=== PATIENT | female | born 1935 | race Caucasian/White ===

== ENCOUNTER 2018-09-19 05:27 | Inpatient (IN) | payer MEDICARE, OTHER, SELFPAY ==
[2018-09-19] VITALS (17 sets, daily range): BP systolic 81–117; BP diastolic 42–74; PULSE 78–109; RESP 16–25; TEMP 36.6–36.9; O2SAT 94–100; BMI 26.4; BMI 24.5; BMI 24.6
--- NOTE | 2018-09-19 05:42 | RAD_ITS ---
HISTORY: C/O CP AND SOB SINCE THURSDAY RECENTLY DISCHARGED FROM OTHER HOSPITAL FOR SAME ADDITIONAL HISTORY: None provided. COMPARISON: 01/13/2014 TECHNIQUE: Frontal chest radiograph. Number of images including paperwork: 1 FINDINGS: LUNGS AND PLEURA: Right mid to lower lung and retrocardiac opacities. Blunting of the costophrenic angles. CARDIAC SILHOUETTE: Stable. MEDIASTINUM AND JUAN: Aortic calcification. UPPER ABDOMEN: Unremarkable. SKELETON AND SOFT TISSUES: No acute findings. Degenerative changes. OTHER DEVICES AND HARDWARE: Lower thoracic spine hardware. RAD/Chest 1 View (Portable) IMPRESSION: 1. Bibasilar opacities, nonspecific but concerning for pneumonia. 2. Small bilateral pleural effusions. at 0644 Reported and signed by: Maricel Francis MD Electronically Signed: Maricel Francis MD at 6:44 EDT Tel , Service support ,
--- NOTE | 2018-09-19 05:42 | EKG12_ITS ---
Test Reason : CP Blood Pressure : / mmHG Vent. Rate : 109 BPM Atrial Rate : 109 BPM P-R Int : 172 ms QRS Dur : 096 ms QT Int : 350 ms P-R-T Axes : 071 -24 114 degrees QTc Int : 471 ms Sinus tachycardia Left ventricular hypertrophy with repolarization abnormality Cannot rule out Septal infarct , age undetermined Inferior infarct , age undetermined Abnormal ECG Confirmed by AMERICA HIRSCH, YOUNG ([id number]), mapping editor REBECA CORRAL ([id number]) on 09/21/2018 1:45:58 PM Referred By: BB Confirmed By:YOUNG CROSS MD
--- NOTE | 2018-09-19 05:42 | ED.VIS.CHEST ---
History of Present Illness Chief Complaint: Chest Pain Informant: Patient, EMS Quality: Pain Location: Right Chest - w/ radiation into right upper back, right shoulder and arm Current Severity: Gone Maximum Severity: Moderate Worsened By: Nothing Relieved By: - - unknown, but received ASA 324mg from EMS Associated Symptoms: Nausea. Negative for: Vomiting, Diaphoresis, Cough, Lightheadedness, Palpitations Narrative: Patient is a terrible historian. For instance, she has a paraplegic, and when asked how that occurred, she states I fell. When asked if she had a spine injury, she states that she does not know. She presents by EMS for chest pain. She states that she was admitted to [facility] in [place] for this and discharged 2 days ago. When asked how long the pain has been going on for, she will not give me a straight answer because she does not remember and states that it has been off and on, and keeps her up at night now. She states that her son would not let her go back to [place] so she came here. At this time she has no symptoms and they resolved. She has a colostomy and she does not know why she needed it. She states she has no medical problems, but is on insulin injections for diabetes and several other medications, which she cannot tell me. She does not know when her last stress test was but states they did not do one within the last couple days. She states that she was told she had a slight heart attack. She states they did blood work and x-rays and no major procedures. She says she may have been diagnosed with pneumonia while she was there and has no idea if she was sent home on antibiotics or not. - Past Medical History (1) Hypertension Status: Chronic (2) DM2 (diabetes mellitus, type 2) Status: Chronic Past Medical History - Allergies and Home Meds Allergies/Adverse Reactions: Allergies No Known Allergies Allergy (Verified 01/12/14 18:03) Primary Care Physician: Charity Clarke DO [STAFF PHYSICIAN] - Surgical History: - - Colostomy Lives: With Family Smoking Status: Former smoker - Family History Maternal Family History: Reports: No pertinent history Paternal Family History: Reports: No pertinent history Sibling Family History: Reports: No pertinent history Review of Systems ROS: Unable to Obtain - very limited due to pt not giving straight answers to direct yes/no questions General: Denies: Chills, Fever Eyes: Denies: Visual changes - bilaterally, Diplopia Cardiovascular: Reports: Chest pain. Denies: Palpitations, Heart racing Respiratory: Denies: Dyspnea - I don't think so but I don't know, Cough Gastrointestinal: Reports: Nausea. Denies: Abdominal pain, Vomiting, Diarrhea Musculoskeletal: Denies: Neck pain, Back pain Skin: Denies: Rash, Wounds Neurological: Reports: Weakness - BLE, chronic, Numbness - BLE, chronic. Denies: Headache Physical Exam Vital Signs/Narrative: Vital Signs Temp Pulse Resp BP Pulse Ox 09/19/18 05:29 97.9 F 109 H 25 H 107/62 98 Inital Vital Signs reviewed: Yes General: Well nourished, Well developed, No Acute Distress Head: Normocephalic, Atraumatic Eyes: Perrl, EOMI ENT: Moist mucous membranes, No rhinorrhea Neck: Supple, Nontender Cardiovascular: Regular rate, Regular rhythm, Murmur - harsh systolic cresc/decresc Respiratory: No distress, CTA bilaterally, Chest nontender Abdomen: Soft, Nontender, Nondistended, Normal bowel sounds Back: Nontender, Normal Inspection Extremities: Nontender, No edema. Negative for: Calf Tenderness Skin: Normal color, No rash, No Trauma Neurological: Alert, Oriented x3, Cranial nerves II-XII grossly intact, Parasthesia - BLE numb, Weakness - BLE paralysis Psychological: Normal affect, Normal Mood Diagnostic/Tx/Re-eval Impressions Chest X-Ray 09/19/18 05:42 IMPRESSION: 1. Bibasilar opacities, nonspecific but concerning for pneumonia. 2. Small bilateral pleural effusions. at 0644 Reported and signed by: Maricel Francis MD Electronically Signed: Maricel Francis MD at 6:44 EDT Tel , Service support , 09/19/18 05:42 Chest 1 View (Portable) [RAD] Stat Laboratory Results 07/21/19 07/21/19 07/21/19 06:22 06:22 06:30 WBC 9.0 RBC 3.05 L Hgb 7.9 L Hct 25.2 L MCV 82.6 MCH 25.9 L MCHC 31.3 L RDW Std Deviation 48.9 H RDW Coeff of Carly 16.2 H Plt Count 290 MPV 9.2 Immature Gran % (Auto) 0.200 Neut % (Auto) 72.1 H Lymph % (Auto) 17.1 L Holt % (Auto) 7.9 Eos % (Auto) 2.0 Baso % (Auto) 0.7 Absolute Neuts (auto) 6.5 Absolute Lymphs (auto) 1.54 Absolute Nucleated RBC 0.00 Nucleated RBC % 0 PT 13.4 INR 1.0 APTT 24.2 Sodium 140 Potassium 4.2 Chloride 111 H Carbon Dioxide 19.0 L Anion Gap 10 BUN 37 H Creatinine 1.35 H Estim Creat Clear Calc 30.60 Est GFR (MDRD) Af Amer 48 L Est GFR (MDRD) Non-Af 40 L BUN/Creatinine Ratio 27.4 H Glucose 149 H Calcium 9.4 Troponin I 2.100 H* - Rhythm Strip Rhythm Strip: Sinus Tach Rate: 109 Ectopy: None - EKG Initial EKG Interpretation: No Acute Injury Pattern, Sinus Tachycardia, S-T Depression - laterally, 1-2mm. LVH w/ strain. 1mm discordant BRYON V1-2 only, w/ associated Q waves., - - narrow QRS, no apparent block. Prior: No Prior - Medical Decision Making EKG shows ST depressions laterally, is consistent with LVH, and likely strain. There are anterior Q waves along with slight ST elevations, indicating likely recent AK, or ventricular aneurysm. However, this is not a STEMI. She is chest pain-free, and remained so throughout her ED stay. She states that she has not been coughing, yet appears to have pneumonia in the right lower lobe. Her initial heart rate was 109, but subsequently before any treatment, it was 86. However, according to governmental regulations, she still meets criteria for sepsis because of this although clinically I do not think she appears extremely ill. She is a very difficult stick. Blood cultures and lactate are ordered, however there is delay in getting these and giving antibiotics because we have had a very difficult time in obtaining these samples. We are waiting for the lab to do so. Aspirin was already given, we are also administering Lovenox. On reevaluation she still has no chest discomfort and states that she feels okay. Discussed with hospitalist for PCU admission. ED Disposition - Plan for ED Patient: Disposition: [facility] Diagnosis: Intermittent chest pain, NSTEMI (non-ST elevated myocardial infarction), Sepsis due to pneumonia Referrals: Charity Clarke DO [STAFF PHYSICIAN] -
--- NOTE | 2018-09-19 05:47 | ED.RN ---
DR. FLANNERY SAID PATIENT SHOULD NOT BE A SEPSIS ALERT.
[2018-09-19 06:31] LABS: Absolute Lymphocyte Count 1.54 X10^3/uL (0.83-4.51); Absolute Neutrophil Count 6.5 X10^3/uL (2.0-7.7); Basophil# 0.06 X10^3/uL; Basophil% 0.7 % (0-1); Eosinophil# 0.18 X10^3/uL; Hematocrit 25.2 % (37-47); Hemoglobin 7.9 g/dL (12.0-15.0); Lymphocyte # 1.54 X10^3/ul (4.0); Lymphocyte % 17.1 % (19-41); Mean Corp Hgb Conc 31.3 g/dL (32-36); Mean Corpuscular Hgb 25.9 pg (27.0-32.0); Mean Corpuscular Volume 82.6 fL (81-99); Mean Platelet Vol. 9.2 fl (6.2-12.0); Monocyte# 0.71 X10^3/uL; Monocyte% 7.9 % (0-10); NRBC Flagged by Analyzer 0 % (0-5); Neutrophil # 6.48 X10^3/uL (2.7-7.7); Neutrophil % 72.1 % (47-70); Platelet Count 290 K/mm3 (150-450); RBC Distribution Width CV 16.2 % (11.6-14.6); RBC Distribution Width SD 48.9 fl (35.1-43.9); Red Blood Count 3.05 M/mm3 (4.2-5.4)
[2018-09-19] MEDS: 0.9% Normal Saline 1,000 ML 150 ML IV (06:31)
[2018-09-19] MEDS: Ondansetron 4 MG/2 ML Vial IV ×2 (06:31→17:14)
[2018-09-19 06:55] LABS: Anion Gap 10 (5-15); BUN 37 mg/dL (7-18); BUN/Creat Ratio 27.4 RATIO (10-20); Calcium,Total 9.4 mg/dL (8.5-10.1); Chloride 111 mmol/L (98-107); Creatinine, Serum 1.35 mg/dL (0.55-1.02); EST Glomerular Filtration Rate 40 mL/min (>60); Est Glom Filt Rate - Afr Amer 48 mL/min (>60); Glucose 149 mg/dL (74-106); Potassium 4.2 mmol/L (3.5-5.1); Sodium Level 140 mmol/L (136-145)
[2018-09-19 06:59] LABS: Partial Thromboplast Time 24.2 Seconds (24.1-36.2); Prothrombin Time (Protime)PT. 13.4 SECONDS (11.7-14.9)
--- NOTE | 2018-09-19 07:18 | HP.PCM_ITS ---
Problem List (1) Sepsis due to pneumonia Status: Acute (2) Pneumonia Status: Acute Qualifiers: Pneumonia type: due to unspecified organism Laterality: bilateral Lung location: lower lobe of lung Qualified Code(s): J18.1 - Lobar pneumonia, unspecified organism (3) NSTEMI (non-ST elevated myocardial infarction) Status: Acute (4) Anemia Status: Acute Qualifiers: Anemia type: unspecified type Qualified Code(s): D64.9 - Anemia, unspecifi ed (5) Hypertension Status: Chronic Qualifiers: Hypertension type: essential hypertension Qualified Code(s): I10 - Essential (primary) hypertension (6) DM2 (diabetes mellitus, type 2) Status: Chronic Qualifiers: Diabetes mellitus salvage determiner insulin use: without fpc use Diabetes mellitus complication status: with other specified complication Qualified Code(s): E11.69 - Type 2 diabetes mellitus with other specified complication History of Present Illness Date of Admission: 09/19/18 Chief Complaint: Chest pain, cough, dyspnea The patient is a 83 y/o F w/ PMHx: Prior Trauma w/ Paraplegia, HTN, CKD stage III, Unclear Intra-abdominal intervention w/ resulting colostomy, Diabetes mellitus type II although poor historian, living at home from report who presents to the [facility] ED on 09/19/18 with history of recent discharge potentially versus ED evaluation at [facility] ~ 2 days prior with ongoing ~ 1 week history of progressively worsening dyspnea, mildly productive cough with concurrent right sided severe, 5/10, intermittent chest pain which she admits radiates into her back and RUE with no specific nausea, emesis, diaphoresis associated but admitted concurrent dyspnea. She notes that at [place] she was told she had pneumonia and potentially a heart attack but difficult to ascertain specifics as poor historian. Upon ED evaluation she noted resolution of her prior chest pain complaint. In the ED work-up included T 97.9, heart rate 109, BP 107/62, respiratory rate 25, 98% on 4 L nasal cannula, CBC with WBC 9, hemoglobin 7.9, platelet 290 with mild left shift, unremarkable coags, BMP with chloride 111, carbon dioxide 19, BUN/creatinine 37/1.35, glucose 149, trop 2.10, EKG with sinus tachycardia with no acute evidence of ischemia with nonspecific changes and a lactic acid 1.2, blood culture x2 pending, chest x-ray with bibasilar opacities and small bilateral pleural effusions. In the ED patient ministered normal saline, Zofran, Levaquin as well as therapeutic Lovenox x1 following discussion with ED physician given an STEMI presentation. Past Medical History Past Medical History (Chronic Problems): Chronic Problems Hypertension (Chronic) DM2 (diabetes mellitus, type 2) (Chronic) Allergies No Known Allergies Allergy (Verified 01/12/14 18:03) Home Medications: Ambulatory Orders Medication Instructions Recorded Insulin Lispro [Humalog] unit SQ TIDCM 01/13/14 Lisinopril [Zestril] 20 mg PO DAILY 01/13/14 Metoprolol(XL)Succ [Toprol Xl 50 mg PO DAILY 01/13/14 (Beta [place])] Multivitamin 1 tab PO DAILY 09/19/18 Novalog 20 units SQ QHS 09/19/18 Surgical History: - - Colostomy for unclear reason. 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 Paternal History Items: - - Patient is demented and cannot give clear past maternal medical history. Sibling History Items: No pertinent history Review of Systems Constitutional: Reports: Malaise, Weakness, Fatigue. Denies: Chills, Fever, Weight Change HEENT: Denies: Head Aches, Sinus Congestion, Sinus Drainage Cardiovascular: Reports: Chest Pain. Denies: Light Headedness, Orthopnea, Palpitations, Syncope Respiratory: Reports: Cough, Shortness of Breath, Shortness of breath upon exertion. Denies: Shortness of breath at rest, Sputum production Gastrointestinal: Denies: Abdominal Pain, Nausea, Vomiting Genitourinary: Denies: Dysuria Musculoskeletal: Reports: Back Pain, Joint Pain. Denies: Joint Tenderness Skin: Denies: Rash, Wounds Neurological: Reports: Focal weakness. Denies: Numbness, Tingling Psychiatric: Denies: Anxiety, Depression, Homicidal Ideations, Suicidal Ideations Hematologic/ Lymphatic: Reports: Anemia. Denies: Easy Bruising, Easy Bleeding VTE Information - Inpt Only VTE Present on Admission: No VTE Mechan Device Prophylaxis: SCD's VTE Pharm Prophylaxis ordered?: Yes Patient Problems: Active and Suspected Problems Intermittent chest pain (Acute) NSTEMI (non-ST elevated myocardial infarction) (Acute) Sepsis due to pneumonia (Acute) Anemia (Acute) Subjective: Seated upright in the bed, fatigued and mildly irritable. Objective: Physical Examination: General: awake, alert, oriented to self and that she is in the hospital but extremely poor historian, confused and suspect underlying notable dementia, remains intermittently cooperative, seated upright in bed in no apparent distress. Skin: normal color, turgor, no icterus, cyanosis except very staged ecchymoses extremities. HEENT: AT/NC, EOMI, PERRLA, moderately dry MM, no carotid bruits or JVD noted. Lungs: Diminished breath sounds bilateral bases, moderate effort, mildly rh onchorous at bases, no wheezing or rales. Heart: Improved, regular rate and rhythm; no gallop, rub audible. Abdomen: soft, obese, ostomy present, NTTP, ND, normal BS, no HSM. Extremities: no cyanosis, clubbing, or edema, s/p trauma with paraplegia, unclear specifics. Neurological: patient awake, alert, oriented x 3; cognitive function intact; pupils equally reactive to light and accomodation; cranial nerves II-XII grossly normal, moving BL UE, history of unclear trauma with history of paraplegia, strength accordingly moderately to severely globally decreased. Psychiatric: affect appears irritable, no acute evidence of depressive or anxiety feelings. - Physical Exam Vital Signs Temp Pulse Resp BP Pulse Ox 97.9 F 96 20 H 115/74 99 09/19/18 05:29 09/19/18 06:37 09/19/18 06:37 09/19/18 06:37 09/19/18 06:37 Oxygen Flow Rate (L/min) 4 Oxygen Delivery Method Room Air Weight: 163 lb 9.328 oz Body Mass Index (BMI) 26.4 Laboratory Tests Past 24 Hrs 09/19/18 09/19/18 09/19/18 06:22 06:22 06:30 WBC 9.0 RBC 3.05 L Hgb 7.9 L Hct 25.2 L MCV 82.6 MCH 25.9 L MCHC 31.3 L RDW Std Deviation 48.9 H RDW Coeff of Carly 16.2 H Plt Count 290 MPV 9.2 Immature Gran % (Auto) 0.200 Neut % (Auto) 72.1 H Lymph % (Auto) 17.1 L [place] % (Auto) 7.9 Eos % (Auto) 2.0 Baso % (Auto) 0.7 Absolute Neuts (auto) 6.5 Absolute Lymphs (auto) 1.54 Absolute Nucleated RBC 0.00 Nucleated RBC % 0 PT 13.4 INR 1.0 APTT 24.2 Sodium 140 Potassium 4.2 Chloride 111 H Carbon Dioxide 19.0 L Anion Gap 10 BUN 37 H Creatinine 1.35 H Estim Creat Clear Calc 30.60 Est GFR (MDRD) Af Amer 48 L Est GFR (MDRD) Non-Af 40 L BUN/Creatinine Ratio 27.4 H Glucose 149 H Calcium 9.4 Troponin I 2.100 H* Assessment/Plan All Active Problems Intermittent chest pain (Acute) NSTEMI (non-ST elevated myocardial infarction) (Acute) Sepsis due to pneumonia (Acute) Anemia (Acute) Pneumonia (Acute) The patient is a 83 y/o F w/ PMHx: Prior Trauma w/ Paraplegia, HTN, CKD stage III, Unclear Intra-abdominal intervention w/ resulting colostomy, Diabetes mellitus type II although poor historian, living at home from report who present s to the [facility] ED on 09/19/18 with history of recent discharge potentially versus ED evaluation at [facility] ~ 2 days prior with ongoing ~ 1 week history of progressively worsening dyspnea, mildly productive cough with concurrent right sided severe, 5/10, intermittent chest pain which she admits radiates into her back and RUE with no specific nausea, emesis, diaphoresis associated but admitted concurrent dyspnea. (1) Acute Sepsis secondary to Community Acquired Pneumonia with associated Hypoxia: ED work-up included T 97.9, heart rate 109, BP 107/62, respiratory rate 25, 98% on 4 L nasal cannula, CBC with WBC 9, hemoglobin 7.9, platelet 290 with mild left shift, unremarkable coags, BMP with chloride 111, carbon dioxide 19, BUN/creatinine 37/1.35, glucose 149, trop 2.10, EKG with sinus tachycardia with no acute evidence of ischemia with nonspecific changes and a lactic acid 1.2, blood culture x2 pending, chest x-ray with bibasilar opacities and small bilateral pleural effusions. Will admit to PCU, maintain on oxygen with wean as tolerated to room air, continue ATC duonebs, PRN albuterol, maintained on IV Rocephin and Azithromycin, HOB, IS parameters w/ pending sputum cultures and urine antigens. Bld cx x 2 obtained in the ED. PT, OT, CM consultation for discharge planning. Records requested from recent possible [facility] evaluation. (2) Chest Pain w/ Acute NSTEMI: EKG in ED w/ sinus tachycardia with no acute evidence of ischemia, nonspecific changes, CXR w/ infiltrates as noted #1 evidence of bilateral bibasilar pneumonia. Trop elevated, 2.10. Will maintain on a monitored bed, continue serial cardiac enzymes and EKGs. Obtain magnesium level upon admission. Continue renally dose therapeutic Lovenox. Continue medical management w/ asa, continue BB and ACEI but will reduce dosing given low normal BP upon presentation add moderate dose statin w/ AM FLP. Cardiology consulted, would necessitate future cardiac catheterization once acute #1 resolves. ASA, NG, morphine. (3) Acute on Chronic Normocytic Anemia: Admission Hgb 7.9, prior 9.3, given #2 and possible need for intervention will obtain stool guaiac, iron panel, ferritin, vitamin B12 and folic acid and further treat as needed. (4) Diabetes mellitus type II: We will hold patient current regimen pending hemoglobin A1c, and interim allow ADA diet and continue Accu-Cheks with low insulin sliding scale. Nutrition consultation for education and teaching. (5) Hypertension: Continue home regimen including metoprolol and lisinopril however will reduce dosing given presentation with low normal blood pressures, PRN hydralazine. (6) Chronic Kidney Disease Stage III: Admission BUN/Cr 37/1.35, baseline renal function 1.1-1.2, similar to prior, repeat BMP in AM. (7) Intra-abdominal Event, Unclear, s/p Colostomy: Records from [place] requested as noted, unclear reason for ostomy, Wound/applied psychology professor consultation. (8) History of Trauma, Unclear w/ Paraplegia: Fall, aspiration precautions, PT, OT, CM consultations, frequent positioning, barrier care. (9) DVT Prophylaxis: SCDs, therapeutic renally dosed lovenox given #2 pending enzyme trending. Code Visit Inpatient E&M: 95884 Init Hosp L3
[2018-09-19] MEDS: levoFLOXacin IV 750 MG/150 ML BAG 100 MG IV (07:46)
[2018-09-19] MEDS: Enoxaparin 80 MG/0.8 ML Syringe 75 MG SC (07:46)
--- NOTE | 2018-09-19 08:22 | ECHOD_ITS ---
Reason For Study: S/P AL Procedure This was a 2D Doppler, Color Flow transthoracic echocardiogram. Exam performed in supine position due to blood transfusion and right shoulder pain. Exam performed portable in patient room. Dr. Morris was notified of echo preliminary report at 9:20 am. Left Ventricle Normal LV size. Severe concentric left ventricular hypertrophy. The estimated ejection fraction is 45 %. Moderate segmental systolic dysfunction (see wall motion). There are regional wall motion abnormalities as specified. [place] : Hypokinetic. Mid-Anterior : Hypokinetic. Right Ventricle Normal RV size. Normal systolic function. Atria The left atrium is severely enlarged. Normal right atrium. Mitral Valve There is moderate mitral annular calcification. Tricuspid Valve Normal tricuspid valve. Aortic Valve Trisinus/trileaflet aortic valve. Severe focal aortic valve calcification. Peak aortic valve gradient 111 mmHg. Mean aortic valve gradient 69 mmHg. Calculated aortic valve area (continuity equation) is 0.6 cm2. Critical aortic stenosis. Pulmonic Valve Normal pulmonic valve. Great Vessels Calcified aortic root. The pulmonary artery is normal size. Normal inferior vena cava. Pericardium/Pleural No pericardial effusion. MMode/2D Measurements & Calculations LVIDd: 4.1 cm IVSd: 1.7 cm LVOT diam: 2.0 cm LVIDs: 3.4 cm LVPWd: 1.6 cm LVOT area: 3.3 cm2 RVDd: 3.2 cm FS: 16.3 % Ao root diam: 3.2 cm LAV(MOD-bp): 137.1 ml Aortic Valve Planimetry: 0.56 cm2 LAV(MOD-bp) Indexed: 74.8 ml/m2 LAV(MOD-sp2): 137.4 ml LAV(MOD-sp4): 142.5 ml LA dimension(2D): 4.8 cm LA A4 area: 32.9 cm2 RA A4 area: 19.1 cm2 Doppler Measurements & Calculations MV E max aila: 142.2 cm/sec Ao V2 max: 528.4 cm/sec LV V1 max: 89.8 cm/sec Ao max P.7 mmHg LV V1 max P.2 mmHg Ao V2 mean: 399.1 cm/sec LV V1 mean P.7 mmHg Ao mean P.8 mmHg LV V1 mean: 61.4 cm/sec Ao V2 VTI: 111.8 cm LV V1 VTI: 18.9 cm ZACH(I,D): 0.56 cm2 ZACH(V,D): 0.56 cm2 SV(LVOT): 62.2 ml PA V2 max: 93.0 cm/sec TR max alia: 399.4 cm/sec TR max P.9 mmHg Interpretation Summary Normal LV size. Severe concentric left ventricular hypertrophy. The estimated ejection fraction is 45 %. Moderate segmental systolic dysfunction (see wall motion). [place] : Hypokinetic. Mid-Anterior : Hypokinetic The left atrium is severely enlarged. Severe focal aortic valve calcification. Peak aortic valve gradient 111 mmHg. Mean aortic valve gradient 69 mmHg. Calculated aortic valve area (continuity equation) is 0.6 cm2. Critical aortic stenosis. Ordering Physician: White^Mame^L^^ Referring Physician: NO PCP Performed By: Riana Davies RDCS, RVT
--- NOTE | 2018-09-19 08:22 | EKG12_ITS ---
Test Reason : CP ADMISSION Blood Pressure : / mmHG Vent. Rate : 097 BPM Atrial Rate : 097 BPM P-R Int : 184 ms QRS Dur : 090 ms QT Int : 354 ms P-R-T Axes : 000 -29 117 degrees QTc Int : 449 ms Normal sinus rhythm Left ventricular hypertrophy with repolarization abnormality Cannot rule out Septal infarct , age undetermined Inferior infarct , age undetermined Abnormal ECG When compared with ECG of 19-SEP-2018 05:30, MANUAL COMPARISON REQUIRED, DATA IS UNCONFIRMED Confirmed by AMERICA HIRSCH, YOUNG ([id number]), story editor REBECA CORRAL ([id number]) on 09/21/2018 1:58:01 PM Referred By: GERARD Confirmed By:YOUNG CROSS MD
[2018-09-19 08:23] LABS: Lactic Acid 1.2 mmol/L (0.4-2.0)
[2018-09-19 09:03] LABS: Hemoglobin A1c 6.3 % (4.2-6.3)
[2018-09-19 09:09] LABS: Ferritin 45 ng/mL (8-252); Iron 26 ug/dL (50-170); Iron Binding Capacity,Total 233 ug/dL (250-450); PERCENT IRON SATURATION 11.2 % (15.0-55.0)
[2018-09-19] MEDS: Metoprolol(XL)Succ 25 MG Tablet 12.5 MG PO (09:57)
[2018-09-19] MEDS: Lisinopril 5 MG Tablet PO (09:58)
[2018-09-19] MEDS: Aspirin E.C. 81 MG Tablet PO (09:58)
[2018-09-19] MEDS: Ceftriaxone 1 GM/50 ML BAG IV (09:58)
--- NOTE | 2018-09-19 11:12 | CON.PCM_ITS ---
Problem List (1) NSTEMI (non-ST elevated myocardial infarction) Status: Acute Reason for Consult Date of Consultation: 09/19/18 History of Present Illness: The patient is a 83 year old F with multiple medical problems. He has history of paraplegia with past trauma. She presented to the hospital yesterday with complaints of anterior chest discomfort. According to her, she had been feeling anterior chest heaviness. No radiation to the arm neck or jaw. No associated shortness of breath. Per her, she has had similar episode about a week ago. Denies any knowledge of any exacerbating or relieving factors. Work-up in the hospital revealed elevated troponins, ruling her in for non-ST elevation myocardial infarction. Patient denies any past history of coronary artery disease. Denies any previous history of angina pectoris. No history of shortness of breath. Per the chart, patient has history of normocytic anemia from before. However her hemoglobin here was noted to be low. Prior hemoglobin 9.3. Current admission 7.9. Past Medical History Allergies/Adverse Reactions: Allergies No Known Allergies Allergy (Verified 01/12/14 18:03) Home Medications: Ambulatory Orders Medication Instructions Recorded Insulin Lispro [Humalog] unit SQ TIDCM 01/13/14 Lisinopril [Zestril] 20 mg PO DAILY 01/13/14 Metoprolol(XL)Succ [Toprol Xl 50 mg PO DAILY 01/13/14 (Beta [place])] Multivitamin 1 tab PO DAILY 09/19/18 Novalog 20 units SQ QHS 09/19/18 Past Medical History (Chronic Problems): Chronic Problems Hypertension (Chronic) DM2 (diabetes mellitus, type 2) (Chronic) Surgical History: - - Colostomy for unclear reason. 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 Paternal History Items: - - Patient is demented and cannot give clear past maternal medical history. Sibling History Items: No pertinent history Lives: With Family Smoking Status: Former smoker Tobacco Use: Non-smoker Alcohol: None Drugs: None Review of Systems - Review of Systems General: Denies: Fever, Chills Cardiovascular: Reports: Chest Discomfort at Rest. Denies: Shortness of Breath, Orthopnea, PND, Peripheral Edema Gastrointestinal: Denies: Abdominal Discomfort, Nausea, Emesis, Hematemesis, Melena Neurological: Reports: - - Question of history of paraplegia secondary to trauma Hematologic/ Lymphatic: Denies: Easy Brusing, Easy Bleeding Objective: Vital Signs Temp Pulse Resp BP Pulse Ox 98.4 F 101 H 20 H 117/68 94 09/19/18 08:20 09/19/18 09:57 09/19/18 08:20 09/19/18 08:20 09/19/18 08:20 Oxygen Flow Rate (L/min) 4 Oxygen Delivery Method Room Air Weight: 69.3 kg Body Mass Index (BMI) 24.5 09/19/18 06:22: WBC 9.0, RBC 3.05 L, Hgb 7.9 L, Hct 25.2 L, MCV 82.6, MCH 25.9 L , MCHC 31.3 L, Plt Count 290, MPV 9.2, Immature Gran % (Auto) 0.200, Neut % (Auto) 72.1 H, Lymph % (Auto) 17.1 L, [place] % (Auto) 7.9, Eos % (Auto) 2.0, Baso % (Auto) 0.7, Absolute Neuts (auto) 6.5, Nucleated RBC % 0 09/19/18 06:22: Sodium 140, Potassium 4.2, Chloride 111 H, Carbon Dioxide 19.0 L , Anion Gap 10, BUN 37 H, Creatinine 1.35 H, Est GFR (MDRD) Af Amer 48 L, Est GFR (MDRD) Non-Af 40 L, BUN/Creatinine Ratio 27.4 H, Glucose 149 H, Calcium 9.4, Troponin I 2.100 H* 09/19/18 06:22: Hemoglobin A1c 6.3 09/19/18 06:22: Iron 26 L, TIBC 233 L, Iron Saturation 11.2 L, Ferritin 45 09/19/18 06:30: PT 13.4, INR 1.0, APTT 24.2 09/19/18 07:41: Lactic Acid 1.2 09/19/18 09:26: Troponin I 7.760 H* Rhythm: Sinus rhythm EKG: Sinus rhythm. Left ventricular hypertrophy with repolarization abnormality. EMS EKG showed ST elevation in inferior leads consistent with inferior ischemia. Presently resolved ECHO: Stress Test: Cardiac Cath: PCI: CT Surgery: Holter monitor: EPS: PPM: CXR: Chest CT Scan: Assessment/Plan 1. Non-ST elevation myocardial infarction. Continue aspirin. On Lovenox. Load with clopidogrel. Start on Plavix 75 mg once daily. Start nitrates. If blood pressure on the lower side, may discontinue the DIXIE inhibitor. Options discussed with patient. Cardiac catheterization with coronary angiography and possible revascularization offered. Risks benefits explained. She understands these and wishes to proceed. I would wait a day for her to monitor her hemoglobin. If no significant drop in hemoglobin, then schedule cardiac catheterization for Thursday. 2. Check 2D echocardiogram with Doppler. 3. History of diabetes mellitus. 4. Dyslipidemia. Managed as per internal medicine 5. History of hypertension. 6. Being treated for pneumonia. 7. Anemia. Work-up as per internal medicine
[2018-09-19 11:51] LABS: Magnesium 2.3 mg/dL (1.6-2.6)
[2018-09-19] MEDS: Clopidogrel Bisulfate 300 MG Tablet PO (12:13)
[2018-09-19] MEDS: Insulin Lispro 100 UNIT/ML INSULN.PEN SC ×3 (12:13→21:19)
[2018-09-19 12:20] LABS: Bedside Glucose 224 mg/dL (70-110)
[2018-09-19] MEDS: Ipratropium/Albuterol Sulfate 3 ML AMPUL.NEB INHALATION ×2 (13:08→19:39)
[2018-09-19 16:46] LABS: Bedside Glucose 170 mg/dL (70-110)
[2018-09-19] MEDS: Enoxaparin 80 MG/0.8 ML Syringe 70 MG SC (17:14)
[2018-09-19] MEDS: Ferrous Gluconate 324 MG Tablet PO (17:14)
[2018-09-19] MEDS: 0.9% Normal Saline 1,000 ML 125 ML IV (17:15)
[2018-09-19 18:04] LABS: Hematocrit 22.7 % (37-47)
[2018-09-19 21:26] LABS: Bedside Glucose 178 mg/dL (70-110)
[2018-09-19 22:26] LABS: Hematocrit 19.7 % (37-47); Hemoglobin 6.3 g/dL (12.0-15.0)
[2018-09-20] VITALS (19 sets, daily range): BP systolic 83–109; BP diastolic 42–71; PULSE 77–113; RESP 16–20; TEMP 36.3–37.4; O2SAT 94–99
--- NOTE | 2018-09-20 00:05 | PCM.CONS.GEN ---
Reason for Consult Date of Consultation: 09/20/18 History of Present Illness: The patient is a 83 year old F admitted with NSTEMI, sepsis/pneumonia, anemia with hemoglobin of 7.9. Patient's fecal occult blood test was positive. Patient does have a colostomy, stool was brown. Patient is unable to tell me why she has the colostomy for sure, did tell me she got it may be a month ago when asked; however unsure if this is true or not. Patient is likely a poor historian. Patient denies any blood per stool, denies any abdominal pain, denies any chest pain, denies any shortness of breath, denies history of EGD or colonoscopy in the past. Patient's son states patient got a colostomy at [facility] due to sacral wound she got while she was at the retirement. Past Medical History Past Medical History (Chronic Problems): Chronic Problems Hypertension (Chronic) DM2 (diabetes mellitus, type 2) (Chronic) Allergies No Known Allergies Allergy (Verified 01/12/14 18:03) Home Medications: Ambulatory Orders Medication Instructions Recorded Insulin Lispro [Humalog] unit SQ TIDCM 01/13/14 Lisinopril [Zestril] 20 mg PO DAILY 01/13/14 Metoprolol(XL)Succ [Toprol Xl 50 mg PO DAILY 01/13/14 (Beta [place])] Multivitamin 1 tab PO DAILY 09/19/18 Aspirin [Aspirin EC] 81 mg PO DAILY 09/20/18 Atorvastatin Calcium 40 mg PO DAILY 09/20/18 Colace 1 tab PO QHS 09/20/18 Donepezil HCl 5 mg PO QHS 09/20/18 Humulin 70-30 Vial 21 units SQ QHS 09/20/18 Potassium Chloride [K-Dur] 20 meq PO DAILY 09/20/18 Surgical History: - - Colostomy at about 2 years (2016) ago due to sacral wound per son Psychiatric History: No pertinent psych hx 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 Paternal History Items: - - Patient is demented and cannot give clear past maternal medical history. Sibling History Items: No pertinent history Review of Systems Constitutional: Denies: Anorexia Eyes: Denies: Blurred vision HEENT: Denies: Difficulty Swallowing Cardiovascular: Denies: Chest Pain Gastrointestinal: Denies: Abdominal Pain, Hematochezia, Nausea, Vomiting Skin: Denies: Rash Psychiatric: Denies: Depression Hematologic/ Lymphatic: Denies: Easy Bruising Patient Problems: Active and Suspected Problems NSTEMI (non-ST elevated myocardial infarction) (Acute) Sepsis due to pneumonia (Acute) Anemia (Acute) - Physical Exam General: Alert, Oriented x3, Cooperative, No apparent distress Cardiovascular: Regular rate Abdomen: Soft, Non Tender, Non-Distended, - - Left lower quadrant colostomy, light brown stool in bag no obvious gross blood, colostomy pink Vital Signs Temp Pulse Resp BP Pulse Ox 97.8 F 87 16 94/42 L 98 09/19/18 23:00 09/19/18 23:00 09/19/18 23:00 09/19/18 23:00 09/19/18 23:00 Oxygen Flow Rate (L/min) 2 Oxygen Delivery Method Room Air Weight: 152 lb 12.485 oz Body Mass Index (BMI) 24.5 Intake and Output for Last 24 Hours 09/18/18 09/19/18 09/20/18 23:59 23:59 23:59 Intake Total 2342 / 2342 Balance 2342 / 2342 Microbiology Past 72 Hours 09/19/18 12:10 Streptococcus pneumoniae Antigen (M - Final Urine Catheter - [place] 09/19/18 12:10 Legionella Antigen - Final Urine Catheter - [place] 09/19/18 11:40 Stool Occult Blood (DEENA) - Final Stool Occult Blood Positive Laboratory Tests Past 24 Hrs 09/19/18 09/19/18 09/19/18 06:22 06:22 06:22 WBC 9.0 RBC 3.05 L Hgb 7.9 L Hct 25.2 L MCV 82.6 MCH 25.9 L MCHC 31.3 L RDW Std Deviation 48.9 H RDW Coeff of Carly 16.2 H Plt Count 290 MPV 9.2 Immature Gran % (Auto) 0.200 Neut % (Auto) 72.1 H Lymph % (Auto) 17.1 L [place] % (Auto) 7.9 Eos % (Auto) 2.0 Baso % (Auto) 0.7 Absolute Neuts (auto) 6.5 Absolute Lymphs (auto) 1.54 Absolute Nucleated RBC 0.00 Nucleated RBC % 0 PT INR APTT Sodium 140 Potassium 4.2 Chloride 111 H Carbon Dioxide 19.0 L Anion Gap 10 BUN 37 H Creatinine 1.35 H Estim Creat Clear Calc 30.60 Est GFR (MDRD) Af Amer 48 L Est GFR (MDRD) Non-Af 40 L BUN/Creatinine Ratio 27.4 H Glucose 149 H Hemoglobin A1c 6.3 Lactic Acid Calcium 9.4 Magnesium Iron TIBC Iron Saturation Ferritin Troponin I 2.100 H* Vitamin B12 Folate Blood Type Antibody Screen Crossmatch 09/19/18 09/19/18 09/19/18 06:22 06:22 06:30 WBC RBC Hgb Hct MCV MCH MCHC RDW Std Deviation RDW Coeff of Carly Plt Count MPV Immature Gran % (Auto) Neut % (Auto) Lymph % (Auto) [place] % (Auto) Eos % (Auto) Baso % (Auto) Absolute Neuts (auto) Absolute Lymphs (auto) Absolute Nucleated RBC Nucleated RBC % PT 13.4 INR 1.0 APTT 24.2 Sodium Potassium Chloride Carbon Dioxide Anion Gap BUN Creatinine Estim Creat Clear Calc Est GFR (MDRD) Af Amer Est GFR (MDRD) Non-Af BUN/Creatinine Ratio Glucose Hemoglobin A1c Lactic Acid Calcium Magnesium Iron 26 L TIBC 233 L Iron Saturation 11.2 L Ferritin 45 Troponin I Vitamin B12 Pending Folate 10.90 Blood Type Antibody Screen Crossmatch 09/19/18 09/19/18 09/19/18 07:41 09:26 09:26 WBC RBC Hgb Hct MCV MCH MCHC RDW Std Deviation RDW Coeff of Carly Plt Count MPV Immature Gran % (Auto) Neut % (Auto) Lymph % (Auto) [place] % (Auto) Eos % (Auto) Baso % (Auto) Absolute Neuts (auto) Absolute Lymphs (auto) Absolute Nucleated RBC Nucleated RBC % PT INR APTT Sodium Potassium Chloride Carbon Dioxide Anion Gap BUN Creatinine Estim Creat Clear Calc Est GFR (MDRD) Af Amer Est GFR (MDRD) Non-Af BUN/Creatinine Ratio Glucose Hemoglobin A1c Lactic Acid 1.2 Calcium Magnesium 2.3 Iron TIBC Iron Saturation Ferritin Troponin I 7.760 H* Vitamin B12 Folate Blood Type Antibody Screen Crossmatch 09/19/18 09/19/18 09/19/18 12:22 15:45 17:46 WBC RBC Hgb 7.0 L Hct 22.7 L MCV MCH MCHC RDW Std Deviation RDW Coeff of Carly Plt Count MPV Immature Gran % (Auto) Neut % (Auto) Lymph % (Auto) [place] % (Auto) Eos % (Auto) Baso % (Auto) Absolute Neuts (auto) Absolute Lymphs (auto) Absolute Nucleated RBC Nucleated RBC % PT INR APTT Sodium Potassium Chloride Carbon Dioxide Anion Gap BUN Creatinine Estim Creat Clear Calc Est GFR (MDRD) Af Amer Est GFR (MDRD) Non-Af BUN/Creatinine Ratio Glucose Hemoglobin A1c Lactic Acid Calcium Magnesium Iron TIBC Iron Saturation Ferritin Troponin I 12.300 H* 17.300 H* Vitamin B12 Folate Blood Type Antibody Screen Crossmatch 09/19/18 09/19/18 09/19/18 21:00 21:00 22:30 WBC RBC Hgb 6.3 L Hct 19.7 L MCV MCH MCHC RDW Std Deviation RDW Coeff of Carly Plt Count MPV Immature Gran % (Auto) Neut % (Auto) Lymph % (Auto) [place] % (Auto) Eos % (Auto) Baso % (Auto) Absolute Neuts (auto) Absolute Lymphs (auto) Absolute Nucleated RBC Nucleated RBC % PT INR APTT Sodium Potassium Chloride Carbon Dioxide Anion Gap BUN Creatinine Estim Creat Clear Calc Est GFR (MDRD) Af Amer Est GFR (MDRD) Non-Af BUN/Creatinine Ratio Glucose Hemoglobin A1c Lactic Acid Calcium Magnesium Iron TIBC Iron Saturation Ferritin Troponin I 24.900 H* Vitamin B12 Folate Blood Type O POSITIVE Antibody Screen NEGATIVE Crossmatch See Detail POC Glucose 09/19/18 09/19/18 09/19/18 21:07 16:39 12:09 POC Glucose 178 H 170 H 224 H Assessment/Plan All Active Problems NSTEMI (non-ST elevated myocardial infarction) (Acute) Sepsis due to pneumonia (Acute) Anemia (Acute) Pneumonia (Acute) 83-year-old female with NSTEMI, pneumonia, anemia 1. Due to patient's increasing troponin patient's scheduled to get heart catheterization tomorrow morning. patient's hemoglobin currently 6.3 she is getting 2 units packed red blood cells tonight she also had lower blood pressure systolic in 80s/90s. Per nurse patient was more lethargic earlier; currently she is and O x3. Patient is currently anticoagulated with Lovenox and Plavix and aspirin. No current plans for EGD or colonoscopy until patient has cardiac work-up complete. Await records from [place]. Will keep patient on Protonix IV. I will continue to follow patient with you. Ksenia Umaña M.D. Pager: [phone] [facility] [address] [place] [address], [facility], [address] [place] [address] Office: [phone] Code Visit Inpatient E&M: 10074 Init Hosp L2
[2018-09-20] MEDS: 0.9% NaCl Peripheral Flush Adult/Peds IV ×6 (04:26→13:07)
[2018-09-20 05:25] LABS: International Normalized Ratio 1.1; Partial Thromboplast Time 24.5 Seconds (24.1-36.2); Prothrombin Time (Protime)PT. 13.7 SECONDS (11.7-14.9)
[2018-09-20] MEDS: 0.9% Normal Saline 1,000 ML 125 ML IV (05:36)
[2018-09-20 05:53] LABS: Anion Gap 8 (5-15); BUN 27 mg/dL (7-18); BUN/Creat Ratio 23.5 RATIO (10-20); Chloride 112 mmol/L (98-107); Cholesterol 102 mg/dL (200); Creatinine, Serum 1.15 mg/dL (0.55-1.02); EST Glomerular Filtration Rate 48 mL/min (>60); Est Glom Filt Rate - Afr Amer 58 mL/min (>60); Estimated Creatinine Clearance 35.92 ml/min; Glucose 105 mg/dL (74-106); High Density Lipoprotein 34 mg/dL; Potassium 4.7 mmol/L (3.5-5.1); Sodium Level 140 mmol/L (136-145); Triglycerides 149 mg/dL; Very Low Density Lipoprotein 30 mg/dL (5-40)
--- NOTE | 2018-09-20 05:55 | EKG12_ITS ---
Test Reason : AM EKG Blood Pressure : / mmHG Vent. Rate : 079 BPM Atrial Rate : 079 BPM P-R Int : 204 ms QRS Dur : 084 ms QT Int : 384 ms P-R-T Axes : 042 -22 142 degrees QTc Int : 440 ms Normal sinus rhythm Left ventricular hypertrophy with repolarization abnormality Cannot rule out Septal infarct , age undetermined Abnormal ECG When compared with ECG of 19-SEP-2018 09:35, MANUAL COMPARISON REQUIRED, DATA IS UNCONFIRMED Confirmed by AMERICA HIRSCH, YOUNG ([id number]), social media editor REBECA CORRAL ([id number]) on 09/21/2018 2:07:41 PM Referred By: GERARD Confirmed By:YOUNG CROSS MD
[2018-09-20 07:01] LABS: Bedside Glucose 106 mg/dL (70-110)
--- NOTE | 2018-09-20 07:12 | PN.CARD_ITS ---
Subjectve: Patient seen this morning. Sleepy. No complaints of chest discomfort. Objective: Vital Signs Temp Pulse Resp BP Pulse Ox 98.2 F 77 18 88/42 L 98 09/20/18 06:23 09/20/18 06:23 09/20/18 06:23 09/20/18 06:23 09/20/18 06:23 Oxygen Flow Rate (L/min) 2 Oxygen Delivery Method Room Air Weight: 152 lb 12.485 oz Body Mass Index (BMI) 24.5 Intake and Output for Last 24 Hours 09/18/18 09/19/18 09/20/18 23:59 23:59 23:59 Intake Total 2342 / 3198 1049 / 1049 Output Total 1275 / 1275 Balance 2342 / 2273 -226 / -226 General: Awake, Ill Appearing, Lethargic HEENT: PERRL, EOMI, Sclera Non Icteric, Pallor Neck: Supple, Good ROM, No Lymph Node Enlargement Lungs: Clear to auscultation Cardiovascular: Regular Rhythm, Normal S1, Normal S2, No Rubs, No Gallops Murmur Murmur: Grade 3/6, Early Systolic Vascular: No Carotid Bruits, Normal Femoral Pulses, Normal Radial Pulses Abdomen: Bowel Sounds Present, Soft, Non Tender, No HSM, No Organomegaly Extremities: No Cyanosis, No Clubbing, Bilateral Edema +1 Musculoskeletal: No Erythema Skin: No Rashes Lymphatic: No Lymph Node Enlargement Neurological: No Focal Motor or Sensory Deficit Psych/Mental Status: Inappropriate 09/19/18 06:22: Hemoglobin A1c 6.3 09/19/18 06:22: Iron 26 L, TIBC 233 L, Iron Saturation 11.2 L, Ferritin 45 09/19/18 07:41: Lactic Acid 1.2 09/19/18 09:26: Troponin I 7.760 H* 09/19/18 09:26: Magnesium 2.3 09/19/18 12:22: Troponin I 12.300 H* 09/19/18 15:45: Troponin I 17.300 H* 09/19/18 17:46: Hgb 7.0 L, Hct 22.7 L 09/19/18 21:00: Troponin I 24.900 H* 09/19/18 21:00: Hgb 6.3 L, Hct 19.7 L 09/20/18 01:10: Troponin I 26.600 H* 09/20/18 04:48: PT 13.7, INR 1.1, APTT 24.5 09/20/18 05:00: Sodium 140, Potassium 4.7, Chloride 112 H, Carbon Dioxide 20.0 L , Anion Gap 8, BUN 27 H, Creatinine 1.15 H, Est GFR (MDRD) Af Amer 58 L, Est GFR (MDRD) Non-Af 48 L, BUN/Creatinine Ratio 23.5 H, Glucose 105, Calcium 9.0, Triglycerides 149, Cholesterol 102, LDL Cholesterol 38, VLDL Cholesterol 30, HDL Cholesterol 34 L Rhythm: EKG: ECHO: Stress Test: Cardiac Cath: PCI: CT Surgery: Holter monitor: EPS: PPM: CXR: Chest CT Scan: Medical Necessity - Tobacco Use Smoking Status: Former smoker Tobacco Use: Non-smoker Assessment/Plan 1. Non-ST elevation myocardial infarction * Patient presents with chest discomfort and nonspecific other complaints and is noted to have abnormal cardiac enzymes with a non-ST elevation myocardial infarction. * She concomitantly has severe anemia and is currently undergoing packed red blood cell count transfusion. * She was started on aspirin and clopidogrel and has been seen by the surgeon. Need to monitor carefully for any further signs of bleeding. * At this particular time I would await an echo to assess her left ventricular function. * I do not think that it is appropriate to perform an immediate cardiac catheterization today unless she has had appropriate blood transfusion especially as she is free of any symptomatology. * Blood pressure remains low. -We will DC Nitropaste and lisinopril. Would consider ICU transfer if there is any change in her symptomatology within the next few hours. * 2. Murmur suggestive of aortic stenosis * Will confirm above with echocardiogram * Reevaluate later today.
--- NOTE | 2018-09-20 08:08 | PN_ITS ---
Patient Problems: Active and Suspected Problems NSTEMI (non-ST elevated myocardial infarction) (Acute) Sepsis due to pneumonia (Acute) Anemia (Acute) Subjective: Chief complaint: Follow-up after admission for community-acquired pneumonia with sepsis, acute non-ST elevation TX and acute on chronic anemia. Patient seen and examined. No acute events overnight. She complains of right shoulder pain. She was able to move her right shoulder freely without restrictions. She mentioned it look like muscle pain. She denied chest pain or shortness of breath. She denied abdominal pain, nausea or vomiting. She is afebrile, blood pressure has been borderline, slightly tachycardic. - Physical Exam General: Alert, Oriented x3, Cooperative, No apparent distress HEENT: Atraumatic, PERRLA, EOMI, Normocephalic Oral: Moist Mucosa, No Gingival or Mucosal Lesions/ Ulcerations Neck: Supple, No JVD, Negative Carotid Bruits, Trachea Midline, Thyroid Normal Size and Texture Lungs: Clear to auscultation, No rhonchi, No wheeze, No rales, Diminished Cardiovascular: Regular rate, Regular Rhythm, Normal S1, Normal S2, No murmurs, PMI Normal Abdomen: Bowel Sounds Present, Soft, Non Tender, Non-Distended, No Hepato- splenomegaly, - - Colostomy bag in place. Extremities: No clubbing, No cyanosis, No edema Skin: No rashes, No breakdown Lymphatic: No Cervical, Supraclavicular, or Inguinal Adenopathy Neurological: Cranial nerves II-XII grossly intact, - - Paraplegia. Psych/Mental Status: Normal Affect, Appropriate, Alert and oriented to time, place, person, mood and affect Vital Signs Temp Pulse Resp BP Pulse Ox 98.2 F 85 18 88/42 L 98 09/20/18 06:23 09/20/18 06:55 09/20/18 06:23 09/20/18 06:23 09/20/18 06:23 Oxygen Flow Rate (L/min) 2 Oxygen Delivery Method Room Air Weight: 152 lb 12.485 oz Body Mass Index (BMI) 24.5 Intake and Output for Last 24 Hours 09/18/18 09/19/18 09/20/18 23:59 23:59 23:59 Intake Total 2342 / 3198 1049 / 1049 Output Total 1275 / 1275 Balance 2342 / 2273 -226 / -226 Microbiology Past 72 Hours 09/19/18 12:10 Streptococcus pneumoniae Antigen (M - Final Urine Catheter - Silverio 09/19/18 12:10 Legionella Antigen - Final Urine Catheter - Silverio 09/19/18 11:40 Stool Occult Blood (DEENA) - Final Stool Occult Blood Positive Laboratory Tests Past 24 Hrs 09/19/18 09/19/18 09/19/18 06:22 06:22 06:22 Hgb Hct PT INR APTT Sodium Potassium Chloride Carbon Dioxide Anion Gap BUN Creatinine Estim Creat Clear Calc Est GFR (MDRD) Af Amer Est GFR (MDRD) Non-Af BUN/Creatinine Ratio Glucose Hemoglobin A1c 6.3 Lactic Acid Calcium Magnesium Iron 26 L TIBC 233 L Iron Saturation 11.2 L Ferritin 45 Troponin I Triglycerides Cholesterol LDL Cholesterol VLDL Cholesterol HDL Cholesterol Vitamin B12 Pending Folate 10.90 Blood Type Antibody Screen Crossmatch 09/19/18 09/19/18 09/19/18 07:41 09:26 09:26 Hgb Hct PT INR APTT Sodium Potassium Chloride Carbon Dioxide Anion Gap BUN Creatinine Estim Creat Clear Calc Est GFR (MDRD) Af Amer Est GFR (MDRD) Non-Af BUN/Creatinine Ratio Glucose Hemoglobin A1c Lactic Acid 1.2 Calcium Magnesium 2.3 Iron TIBC Iron Saturation Ferritin Troponin I 7.760 H* Triglycerides Cholesterol LDL Cholesterol VLDL Cholesterol HDL Cholesterol Vitamin B12 Folate Blood Type Antibody Screen Crossmatch 09/19/18 09/19/18 09/19/18 12:22 15:45 17:46 Hgb 7.0 L Hct 22.7 L PT INR APTT Sodium Potassium Chloride Carbon Dioxide Anion Gap BUN Creatinine Estim Creat Clear Calc Est GFR (MDRD) Af Amer Est GFR (MDRD) Non-Af BUN/Creatinine Ratio Glucose Hemoglobin A1c Lactic Acid Calcium Magnesium Iron TIBC Iron Saturation Ferritin Troponin I 12.300 H* 17.300 H* Triglycerides Cholesterol LDL Cholesterol VLDL Cholesterol HDL Cholesterol Vitamin B12 Folate Blood Type Antibody Screen Crossmatch 09/19/18 09/19/18 09/19/18 21:00 21:00 22:30 Hgb 6.3 L Hct 19.7 L PT INR APTT Sodium Potassium Chloride Carbon Dioxide Anion Gap BUN Creatinine Estim Creat Clear Calc Est GFR (MDRD) Af Amer Est GFR (MDRD) Non-Af BUN/Creatinine Ratio Glucose Hemoglobin A1c Lactic Acid Calcium Magnesium Iron TIBC Iron Saturation Ferritin Troponin I 24.900 H* Triglycerides Cholesterol LDL Cholesterol VLDL Cholesterol HDL Cholesterol Vitamin B12 Folate Blood Type O POSITIVE Antibody Screen NEGATIVE Crossmatch See Detail 09/20/18 09/20/18 09/20/18 01:10 04:48 05:00 Hgb Hct PT 13.7 INR 1.1 APTT 24.5 Sodium 140 Potassium 4.7 Chloride 112 H Carbon Dioxide 20.0 L Anion Gap 8 BUN 27 H Creatinine 1.15 H Estim Creat Clear Calc 35.92 Est GFR (MDRD) Af Amer 58 L Est GFR (MDRD) Non-Af 48 L BUN/Creatinine Ratio 23.5 H Glucose 105 Hemoglobin A1c Lactic Acid Calcium 9.0 Magnesium Iron TIBC Iron Saturation Ferritin Troponin I 26.600 H* Triglycerides 149 Cholesterol 102 LDL Cholesterol 38 VLDL Cholesterol 30 HDL Cholesterol 34 L Vitamin B12 Folate Blood Type Antibody Screen Crossmatch POC Glucose 09/20/18 09/19/18 09/19/18 06:55 21:07 16:39 POC Glucose 106 178 H 170 H 09/19/18 12:09 POC Glucose 224 H Clinical Impression(s) from Imaging Studies Chest X-Ray 09/19/18 05:42 IMPRESSION: 1. Bibasilar opacities, nonspecific but concerning for pneumonia. 2. Small bilateral pleural effusions. at 0644 Reported and signed by: Maricel Francis MD Electronically Signed: Maricel Francis MD at 6:44 EDT Tel , Service support , Medical Necessity - Tobacco Use Smoking Status: Former smoker Assessment/Plan All Active Problems NSTEMI (non-ST elevated myocardial infarction) (Acute) Sepsis due to pneumonia (Acute) Anemia (Acute) Pneumonia (Acute) This is an 82 presented to the emergency room because of chest pain, found to have acute non-ST elevation TX, healthcare associated pneumonia with sepsis as well as acute on chronic anemia requiring blood transfusion. #1 acute non-ST elevation TX: She is on aspirin, Plavix, statins and metoprolol. She was on therapeutic Lovenox which was discontinued. She is chest pain-free. Troponins are peaking, highest was 26.6. Cardiology consulted and reportedly, she has severe aortic stenosis. This event of acute non-ST elevation TX could be due to severe anemia in the setting of severe aortic stenosis that led to this cardiac event. Echocardiogram report is pending. She is slightly tachycardic, blood pressure is borderline, afebrile. Plan: Continue same treatment, monitor hemoglobin hematocrit, cardiology on the case. No plan for cardiac catheterization today. #2 Healthcare associated pneumonia/sepsis: In context of recent admission to another facility for pneumonia, she stayed in the hospital for 4 days. Patient mentioned that she was not sent on antibiotics to her home. She is on IV Rocephin and Zithromax. Pneumococcal and Legionella antigen were negative. Blood cultures pending. Plan: Change IV antibiotics to IV vancomycin and Zosyn. #3 acute on chronic anemia: Baseline hemoglobin has been around 9 g/dL. Today's hemoglobin is 6.3 g/dL. Her stool was positive for occult blood. She is getting second unit of blood transfusion. General surgery consulted, recommended no endoscopy at this time until she is stable from cardiac standpoint. Plan to repeat H&H 1 hour after completing the second unit of blood transfusion, transfuse another unit of packed RBCs if hemoglobin remains below 8 g/dL, repeat CBC tomorrow morning. #4 type 2 diabetes mellitus: Blood sugar has been under fair control. At this time, she is only on sliding scale. Patient will be allowed to have ADA diet. Expect blood sugar to start go up after start diet, will resume home doses of NovoLog and Humalog when home medication list updated. #5 hypertension: At this time, blood pressure is borderline, she is asymptomati c. She is on metoprolol. Lisinopril discontinued. #6 stage III chronic kidney disease: Baseline creatinine has been around 1.1 to 1.3 mg/dL. Today's creatinine is 1.15, stable at baseline. #7 status post colostomy: No clear reason for why she had that colostomy. Wound care nurse consulted. #8 history of trauma/paraplegia: Supportive care, positioning. #9 DVT prophylaxis: SCDs. No chemical prophylaxis because of acute anemia and probable GI bleed. This note was generated with [id number] software. It may contain incorrect words, spelling, and punctuation that were not noted in checking the note before signing. Code Visit Inpatient E&M: 67522 Subs Hosp L3
[2018-09-20 09:15] LABS: Vitamin B12 400 pg/mL (211-911)
[2018-09-20] MEDS: 0.9% Normal Saline 1,000 ML 75 ML IV (09:26)
--- NOTE | 2018-09-20 09:48 | PCM.PN.SRG ---
Patient Problems: Active and Suspected Problems NSTEMI (non-ST elevated myocardial infarction) (Acute) Sepsis due to pneumonia (Acute) Anemia (Acute) Subjective: Patient getting her second unit of packed red blood cells. Patient still denies any symptoms of chest pain or abdominal pain. Per wound nurse colostomy had brown stool as it was just changed no obvious blood. Possible cardiac cath today or tomorrow - Physical Exam General: Alert, Oriented x3, Cooperative, No apparent distress HEENT: Atraumatic Cardiovascular: Regular rate Abdomen: Soft, Non Tender, Non-Distended, - - Colostomy pink Extremities: - - Able to wiggle the left toes, states the right leg is paralyzed Psych/Mental Status: Normal Affect Vital Signs Temp Pulse Resp BP Pulse Ox 99.1 F 108 H 20 H 89/59 L 97 09/20/18 08:53 09/20/18 08:53 09/20/18 08:53 09/20/18 08:53 09/20/18 08:53 Oxygen Flow Rate (L/min) 2 Oxygen Delivery Method Room Air Weight: 152 lb 12.485 oz Body Mass Index (BMI) 24.5 Intake and Output for Last 24 Hours 09/18/18 09/19/18 09/20/18 23:59 23:59 23:59 Intake Total 2342 / 3198 1449 / 1449 Output Total 1275 / 1275 Balance 2342 / 2273 174 / 174 Microbiology Past 72 Hours 09/19/18 12:10 Streptococcus pneumoniae Antigen (M - Final Urine Catheter - Silverio 09/19/18 12:10 Legionella Antigen - Final Urine Catheter - Silverio 09/19/18 11:40 Stool Occult Blood (DEENA) - Final Stool Occult Blood Positive Laboratory Tests Past 24 Hrs 09/19/18 09/19/18 09/19/18 06:22 09:26 09:26 Hgb Hct PT INR APTT Sodium Potassium Chloride Carbon Dioxide Anion Gap BUN Creatinine Estim Creat Clear Calc Est GFR (MDRD) Af Amer Est GFR (MDRD) Non-Af BUN/Creatinine Ratio Glucose Calcium Magnesium 2.3 Troponin I 7.760 H* Triglycerides Cholesterol LDL Cholesterol VLDL Cholesterol HDL Cholesterol Vitamin B12 400 Blood Type Antibody Screen Crossmatch 09/19/18 09/19/18 09/19/18 12:22 15:45 17:46 Hgb 7.0 L Hct 22.7 L PT INR APTT Sodium Potassium Chloride Carbon Dioxide Anion Gap BUN Creatinine Estim Creat Clear Calc Est GFR (MDRD) Af Amer Est GFR (MDRD) Non-Af BUN/Creatinine Ratio Glucose Calcium Magnesium Troponin I 12.300 H* 17.300 H* Triglycerides Cholesterol LDL Cholesterol VLDL Cholesterol HDL Cholesterol Vitamin B12 Blood Type Antibody Screen Crossmatch 09/19/18 09/19/18 09/19/18 21:00 21:00 22:30 Hgb 6.3 L Hct 19.7 L PT INR APTT Sodium Potassium Chloride Carbon Dioxide Anion Gap BUN Creatinine Estim Creat Clear Calc Est GFR (MDRD) Af Amer Est GFR (MDRD) Non-Af BUN/Creatinine Ratio Glucose Calcium Magnesium Troponin I 24.900 H* Triglycerides Cholesterol LDL Cholesterol VLDL Cholesterol HDL Cholesterol Vitamin B12 Blood Type O POSITIVE Antibody Screen NEGATIVE Crossmatch See Detail 09/20/18 09/20/18 09/20/18 01:10 04:48 05:00 Hgb Hct PT 13.7 INR 1.1 APTT 24.5 Sodium 140 Potassium 4.7 Chloride 112 H Carbon Dioxide 20.0 L Anion Gap 8 BUN 27 H Creatinine 1.15 H Estim Creat Clear Calc 35.92 Est GFR (MDRD) Af Amer 58 L Est GFR (MDRD) Non-Af 48 L BUN/Creatinine Ratio 23.5 H Glucose 105 Calcium 9.0 Magnesium Troponin I 26.600 H* Triglycerides 149 Cholesterol 102 LDL Cholesterol 38 VLDL Cholesterol 30 HDL Cholesterol 34 L Vitamin B12 Blood Type Antibody Screen Crossmatch POC Glucose 09/20/18 09/19/18 09/19/18 06:55 21:07 16:39 POC Glucose 106 178 H 170 H 09/19/18 12:09 POC Glucose 224 H Medical Necessity - Tobacco Use Smoking Status: Former smoker Tobacco Use: Non-smoker Assessment/Plan All Active Problems NSTEMI (non-ST elevated myocardial infarction) (Acute) Sepsis due to pneumonia (Acute) Anemia (Acute) Pneumonia (Acute) 83-year-old female with NSTEMI, pneumonia, anemia 1. Patient still been hypotensive she is on her second unit of packed red blood cells, no gross bleeding seen per colostomy. Patient on IV Protonix. Possible heart cath today or tomorrow per cardiology--awaiting hemoglobin after transfusion. We will continue to follow. Ksenia Umaña M.D. Pager: [phone] [facility] [address] [place] [address], [address] [place] [address] Office: [phone]
[2018-09-20] MEDS: Ceftriaxone 1 GM/50 ML BAG IV (10:07)
--- NOTE | 2018-09-20 10:10 | NURSING ---
Attempted to call sonRamesh to get patient's history and when patient's colostomy surgery was. the number listed on the demographics sheet is incorrect. the man who answered the phone states it is the wrong number. verified the number called and this was the one listed on demographics sheet.
--- NOTE | 2018-09-20 10:42 | NURSING ---
wound photo: right heel
--- NOTE | 2018-09-20 10:43 | NURSING ---
wound photo: sacrum
--- NOTE | 2018-09-20 10:57 | NURSING ---
Was able to talk with son. States patient's colostomy surgery was approx 2 years ago to divert stool from sacral wound. states the surgery was in [facility].
--- NOTE | 2018-09-20 11:27 | CASEMGMT ---
RN CM assessment: Face to Face with patient for initial transition planning/care coordination assessment. RN CM introduced self and role at [facility], pt voices understanding and consents to assessment at this time. Pt is A/Ox3 at this time and answers most questions appropriately at this time. Pt is sitting up in bed in no distress at this time. Care providers, pharmacy, and demographics verified at this time. Pt states this RN CM, 'why didn't you just ask my son all these questions, he could have answered them.' This RN CM advised pt that pt is to complete assessment, if able and this RN CM wanted to speak with her as well. Pt's son did call into this RN CM prior to assessment completion and had notified this RN CM that pt was released from SNF about 3 weeks ago and has already met her 100 days. He states that pt was at [facility] for admission prior to this admission and that 'they didn't do anything there so I brought her here when she still didn't feel well.' Son states that pt has had sacral wound for the last 2 years and it was from a SNF stay previously and that pt just won a settlement in regards to same. PCP: Adela thompson [place] Specialists: Pt states currently has no specialists. [facility] Prescription Benefit: Yes Living Will/HPOA: Pt states has LW/HPOA and is aware that they are not currently on file at [facility]. Per son, pt normally goes to for all care. Pt states that son, Ramesh Chahal, is HPOA. LNOK: Ramesh Chahal, son Living Arrangements: Pt lives with son, his girlfriend and her teenage children on the main level of 3 story home. Per son, pt always has someone home with her. Per pt, she is bed bound and family assists with all care including freq turning and bed baths. Transportation: Pt's son drives and pt states no transportation concerns. Pt states that she rarely goes out of home. She states that son takes her down the steps in her wheelchair to get her out of home. DME/HHC: Pt has the following DME: hospital bed w/ special air mattress, wedges, boots for heels. Pt states has been to SNF in the past but cannot remember name. Pt/son decline HHC at this time. Pt/son state no concerns with pt going home at discharge. Pt is retired. Pt states does not smoke or drink ETOH. Pt states no further concerns/needs at this time. CM to follow for any further discharge planning/needs. Advised pt to ask for CM if any further questions/concerns/needs arise, voice understanding. Pt Goal: Home w/ family support Plan: Home w/ family support. Anna CARRIZALES CM
[2018-09-20 12:00] LABS: Bedside Glucose 174 mg/dL (70-110)
--- NOTE | 2018-09-20 12:15 | RAD_ITS ---
STUDY: X-RAY CHEST REASON FOR EXAM: Female, 83 years old. Worsening shortness of breath TECHNIQUE: PA and lateral views of the chest. COMPARISON: 09/19/2018 FINDINGS: EKG leads overlie the chest Lungs are expanded with superimposed interstitial edema and bilateral pleural effusions consistent with CHF. Follow-up recommended to assure resolution. Normal size heart. Normal mediastinum and sadie. Normal visualized pulmonary arteries. Normal visualized aortic arch and descending thoracic aorta. There are diffuse degenerative changes of the visualized thoracic spine, with surgical hardware in the thoracic spine free of complication. Normal visualized ribs, clavicles, and shoulders. There is no demonstrated abnormality of the visualized soft tissue structures of the upper abdomen. RAD/Chest PA and Lateral IMPRESSION: CHF with bilateral pleural effusions, follow-up recommended to assure resolution Electronically Signed: David Good MD at 12:34 EDT , Service support ,
--- NOTE | 2018-09-20 12:33 | PCM.RX.CS ---
Consult Pharmacy has been consulted to manage selected antiobiotic: Vancomycin Type of Consult: New start Suspected Infection: Pneumonia Prior Doses of Antibiotics Received/Current Regimen: NO VANCOMYCIN GIVEN PREVIOUSLY Labs: Sodium 140 mmol/L (136-145) 09/20/18 05:00 Potassium 4.7 mmol/L (3.5-5.1) 09/20/18 05:00 Chloride 112 mmol/L (98-107) H 09/20/18 05:00 Carbon Dioxide 20.0 mmol/L (21.0-32.0) L 09/20/18 05:00 8 (5-15) 09/20/18 05:00 BUN 27 mg/dL (7-18) H 09/20/18 05:00 1.15 mg/dL (0.55-1.02) H 09/20/18 05:00 Est GFR (MDRD) Af Amer 58 mL/min (>60) L 09/20/18 05:00 Est GFR (MDRD) Non-Af 48 mL/min (>60) L 09/20/18 05:00 23.5 RATIO (10-20) H 09/20/18 05:00 Glucose 105 mg/dL (74-106) 09/20/18 05:00 Microbiology: Microbiology 09/19/18 12:10 Urine Catheter - Silverio Streptococcus pneumoniae Antigen (M - Final 09/19/18 12:10 Urine Catheter - Silverio Legionella Antigen - Final 09/19/18 11:40 Stool Stool Occult Blood (DEENA) - Final Occult Blood Positive Weight used for dosin.3 kg Estimated Creatinine Clearance: 36 ML/MIN Goal Trough: 15-20 mcg/mL Pharmacy Plan for Drug Dosing: Pharmacy consulted for vancomycin management. A standard initial dose was ordered, which came out to the same dose as the scheduled dosing per protocol. In lieu of entering a 1gram x1 dose, will just start scheduled dosing at this time. PLAN/RECOMMENDATIONS 1. Vancomycin 1000mg IV Q24hrs to start 09/20/18 @1300 2. Trough prior to 3rd dose per protocol 09/22/18 @1230 3. Pharmacy Service will continue to monitor and adjust dosing as required.
[2018-09-20] MEDS: Aspirin E.C. 81 MG Tablet PO (12:36)
[2018-09-20] MEDS: Ferrous Gluconate 324 MG Tablet PO ×2 (12:37→16:55)
[2018-09-20] MEDS: Multivitamins,Therapeutic Tablet 1 TABLET PO (12:37)
[2018-09-20] MEDS: Clopidogrel Bisulfate 75 MG Tablet PO (12:38)
[2018-09-20] MEDS: Acetaminophen 325 MG Tablet 650 MG PO (12:38)
[2018-09-20] MEDS: Insulin Lispro 100 UNIT/ML INSULN.PEN SC ×3 (12:39→22:03)
[2018-09-20 12:50] LABS: Absolute Lymphocyte Count 1.19 X10^3/uL (0.83-4.51); Basophil# 0.05 X10^3/uL; Basophil% 0.6 % (0-1); Eosinophil# 0.36 X10^3/uL; Eosinophils% 4.3 % (0-5); Hematocrit 27.3 % (37-47); Hemoglobin 8.9 g/dL (12.0-15.0); Lymphocyte # 1.19 X10^3/ul (4.0); Lymphocyte % 14.1 % (19-41); Mean Corp Hgb Conc 32.6 g/dL (32-36); Mean Corpuscular Hgb 26.6 pg (27.0-32.0); Mean Corpuscular Volume 81.7 fL (81-99); Mean Platelet Vol. 8.8 fl (6.2-12.0); Monocyte% 9.5 % (0-10); NRBC Flagged by Analyzer 0 % (0-5); Neutrophil # 6.02 X10^3/uL (2.7-7.7); Platelet Count 239 K/mm3 (150-450); RBC Distribution Width CV 15.6 % (11.6-14.6); RBC Distribution Width SD 46.6 fl (35.1-43.9); Red Blood Count 3.34 M/mm3 (4.2-5.4); White Blood Count 8.5 K/mm3 (4.4-11.0)
[2018-09-20] MEDS: Vancomycin IV 1,000 MG/200 ML BAG 200 MG IV (13:03)
[2018-09-20] MEDS: Ondansetron 4 MG/2 ML Vial IV (14:10)
[2018-09-20 17:06] LABS: Bedside Glucose 160 mg/dL (70-110)
[2018-09-20] MEDS: Ipratropium/Albuterol Sulfate 3 ML AMPUL.NEB INHALATION (19:03)
--- NOTE | 2018-09-20 21:45 | NURSING ---
Care of this patient has been handed over to Chastity Dumont RN at this time.
[2018-09-20] MEDS: HYDROcodone Bitartrate/Apap 5/325 Tablet PO (21:57)
[2018-09-20] MEDS: Atorvastatin Calcium 20 MG Tablet PO (22:03)
[2018-09-20 23:15] LABS: Bedside Glucose 194 mg/dL (70-110)
[2018-09-21] VITALS (28 sets, daily range): BP systolic 95–139; BP diastolic 51–103; PULSE 87–106; RESP 16–30; TEMP 36.6–36.7; O2SAT 95–100
[2018-09-21 05:39] LABS: International Normalized Ratio 1.1; Prothrombin Time (Protime)PT. 14.3 SECONDS (11.7-14.9)
[2018-09-21 05:40] LABS: Partial Thromboplast Time 41.2 Seconds (24.1-36.2)
[2018-09-21 05:45] LABS: Absolute Lymphocyte Count 1.79 X10^3/uL (0.83-4.51); Absolute Neutrophil Count 5.9 X10^3/uL (2.0-7.7); Basophil# 0.07 X10^3/uL; Basophil% 0.8 % (0-1); Eosinophil# 0.46 X10^3/uL; Eosinophils% 4.9 % (0-5); Lymphocyte # 1.79 X10^3/ul (4.0); Lymphocyte % 19.2 % (19-41); Mean Corp Hgb Conc 32.1 g/dL (32-36); Mean Corpuscular Hgb 26.5 pg (27.0-32.0); Mean Corpuscular Volume 82.6 fL (81-99); Mean Platelet Vol. 9.3 fl (6.2-12.0); Monocyte# 1.04 X10^3/uL; Monocyte% 11.1 % (0-10); NRBC Flagged by Analyzer 0 % (0-5); Neutrophil # 5.91 X10^3/uL (2.7-7.7); Neutrophil % 63.4 % (47-70); Platelet Count 228 K/mm3 (150-450); RBC Distribution Width CV 15.9 % (11.6-14.6); Red Blood Count 3.39 M/mm3 (4.2-5.4); White Blood Count 9.3 K/mm3 (4.4-11.0)
--- NOTE | 2018-09-21 05:55 | EKG12_ITS ---
Test Reason : AM EKG Blood Pressure : / mmHG Vent. Rate : 094 BPM Atrial Rate : 094 BPM P-R Int : 178 ms QRS Dur : 092 ms QT Int : 354 ms P-R-T Axes : 077 -31 127 degrees QTc Int : 442 ms Normal sinus rhythm Left axis deviation Left ventricular hypertrophy with repolarization abnormality Cannot rule out Septal infarct , age undetermined Inferior infarct , age undetermined Abnormal ECG When compared with ECG of 20-SEP-2018 05:37, MANUAL COMPARISON REQUIRED, DATA IS UNCONFIRMED Confirmed by KRISTEN HIRSCH, SONI ([id number]), continuity editor LILLIANA IBARRA ([id number]) on 09/24/2018 9:50:52 AM Referred By: RIZWANA Confirmed By:MARVIN PETERSON MD
[2018-09-21 05:56] LABS: Anion Gap 8 (5-15); BUN 33 mg/dL (7-18); BUN/Creat Ratio 21.7 RATIO (10-20); Calcium,Total 9.6 mg/dL (8.5-10.1); Chloride 112 mmol/L (98-107); Creatinine, Serum 1.52 mg/dL (0.55-1.02); EST Glomerular Filtration Rate 35 mL/min (>60); Est Glom Filt Rate - Afr Amer 42 mL/min (>60); Estimated Creatinine Clearance 27.17 ml/min; Glucose 143 mg/dL (74-106); Potassium 4.4 mmol/L (3.5-5.1); Sodium Level 141 mmol/L (136-145)
[2018-09-21] MEDS: Clopidogrel Bisulfate 75 MG Tablet PO (06:43)
[2018-09-21] MEDS: Metoprolol(XL)Succ 25 MG Tablet 12.5 MG PO (06:43)
[2018-09-21] MEDS: Aspirin E.C. 81 MG Tablet PO (06:43)
[2018-09-21 07:05] LABS: Bedside Glucose 124 mg/dL (70-110)
[2018-09-21] MEDS: Ipratropium/Albuterol Sulfate 3 ML AMPUL.NEB INHALATION ×3 (07:09→18:50)
--- NOTE | 2018-09-21 07:39 | PCM.PN.SRG ---
Patient Problems: Active and Suspected Problems NSTEMI (non-ST elevated myocardial infarction) (Acute) Sepsis due to pneumonia (Acute) Anemia (Acute) Subjective: Patient denies any chest or abdominal pain. Heart cath scheduled for noon today. Hemoglobin stable at 9 status post 2 units yesterday. - Physical Exam General: Alert, Oriented x3, Cooperative, No apparent distress Lungs: Normal air movement Cardiovascular: Regular rate Abdomen: Soft, Non Tender, Non-Distended, - - Colostomy pink with brown liquid stool in bag Vital Signs Temp Pulse Resp BP Pulse Ox 97.9 F 96 18 112/75 100 09/21/18 06:33 09/21/18 06:43 09/21/18 06:33 09/21/18 06:43 09/21/18 06:33 Oxygen Flow Rate (L/min) 1.5 Oxygen Delivery Method Nasal Cannula Weight: 152 lb 12.485 oz Body Mass Index (BMI) 24.5 Intake and Output for Last 24 Hours 09/19/18 09/20/18 09/21/18 23:59 23:59 23:59 Intake Total 2342 / 3198 3713.4 / 3941.6 306.2 / 306.2 Output Total 1875 / 2675 1550 / 1550 Balance 2342 / 2273 1838.4 / 1266.6 -1243.8 / -1243.8 Microbiology Past 72 Hours 09/19/18 07:41 Blood Culture - Preliminary Blood Culture (Wb) - Right Wrist No growth in 48 hours. 09/19/18 12:10 Streptococcus pneumoniae Antigen (M - Final Urine Catheter - Silverio 09/19/18 12:10 Legionella Antigen - Final Urine Catheter - Silverio 09/19/18 11:40 Stool Occult Blood (DEENA) - Final Stool Occult Blood Positive Laboratory Tests Past 24 Hrs 09/19/18 09/19/18 09/20/18 06:22 22:30 12:40 WBC 8.5 RBC 3.34 L Hgb 8.9 L Hct 27.3 L MCV 81.7 MCH 26.6 L MCHC 32.6 RDW Std Deviation 46.6 H RDW Coeff of Carly 15.6 H Plt Count 239 MPV 8.8 Immature Gran % (Auto) 0.500 Neut % (Auto) 71.0 H Lymph % (Auto) 14.1 L Hunt % (Auto) 9.5 Eos % (Auto) 4.3 Baso % (Auto) 0.6 Absolute Neuts (auto) 6.0 Absolute Lymphs (auto) 1.19 Absolute Nucleated RBC 0.00 Nucleated RBC % 0 PT INR APTT Sodium Potassium Chloride Carbon Dioxide Anion Gap BUN Creatinine Estim Creat Clear Calc Est GFR (MDRD) Af Amer Est GFR (MDRD) Non-Af BUN/Creatinine Ratio Glucose Calcium Vitamin B12 400 Blood Type O POSITIVE Antibody Screen NEGATIVE Crossmatch See Detail 09/21/18 09/21/18 09/21/18 05:10 05:10 05:10 WBC 9.3 RBC 3.39 L Hgb 9.0 L Hct 28.0 L MCV 82.6 MCH 26.5 L MCHC 32.1 RDW Std Deviation 48.0 H RDW Coeff of Carly 15.9 H Plt Count 228 MPV 9.3 Immature Gran % (Auto) 0.600 Neut % (Auto) 63.4 Lymph % (Auto) 19.2 Hunt % (Auto) 11.1 H Eos % (Auto) 4.9 Baso % (Auto) 0.8 Absolute Neuts (auto) 5.9 Absolute Lymphs (auto) 1.79 Absolute Nucleated RBC 0.00 Nucleated RBC % 0 PT 14.3 INR 1.1 APTT 41.2 H Sodium 141 Potassium 4.4 Chloride 112 H Carbon Dioxide 21.0 Anion Gap 8 BUN 33 H Creatinine 1.52 H Estim Creat Clear Calc 27.17 Est GFR (MDRD) Af Amer 42 L Est GFR (MDRD) Non-Af 35 L BUN/Creatinine Ratio 21.7 H Glucose 143 H Calcium 9.6 Vitamin B12 Blood Type Antibody Screen Crossmatch POC Glucose 09/21/18 09/20/18 09/20/18 06:41 22:01 16:46 POC Glucose 124 H 194 H 160 H 09/20/18 11:55 POC Glucose 174 H Medical Necessity - Tobacco Use Smoking Status: Former smoker Tobacco Use: Non-smoker Assessment/Plan All Active Problems NSTEMI (non-ST elevated myocardial infarction) (Acute) Sepsis due to pneumonia (Acute) Anemia (Acute) Pneumonia (Acute) 83-year-old female with NSTEMI, pneumonia, anemia 1. Plan for cath today at noon with cardiology. Patient hemoglobin stable at 9.0, continue IV Protonix. We will continue to follow. Ksenia Robotham, M.D. Pager: [phone] [facility] [address] [place] [address], [address] [place] [address] Office: [phone]
--- NOTE | 2018-09-21 08:22 | PCM.PROGNOTE ---
Patient Problems: Active and Suspected Problems NSTEMI (non-ST elevated myocardial infarction) (Acute) Sepsis due to pneumonia (Acute) Anemia (Acute) Subjective: Chief complaint: Follow-up after admission for community-acquired pneumonia with sepsis, acute non-ST elevation NM and acute on chronic anemia. Patient seen and examined. No acute events overnight. She denies chest pain or shortness of breath. Denies abdominal pain, nausea or vomiting. Her vital signs are stable. She is going for cardiac catheterization today. - Physical Exam General: Alert, Oriented x3, Cooperative, No apparent distress HEENT: Atraumatic, PERRLA, EOMI, Normocephalic Oral: Moist Mucosa, No Gingival or Mucosal Lesions/ Ulcerations Neck: Supple, No JVD, Negative Carotid Bruits, Trachea Midline, Thyroid Normal Size and Texture Lungs: Clear to auscultation, No rhonchi, No wheeze, No rales, Diminished Cardiovascular: Regular rate, Regular Rhythm, Normal S1, Normal S2, PMI Normal Abdomen: Bowel Sounds Present, Soft, Non Tender, Non-Distended, No Hepato-splenomegaly, - - Colostomy bag in place. Extremities: No clubbing, No cyanosis, No edema Skin: No rashes, No breakdown Lymphatic: No Cervical, Supraclavicular, or Inguinal Adenopathy Neurological: Cranial nerves II-XII grossly intact, Motor Exam 5/5 strength throughout Psych/Mental Status: Normal Affect, Appropriate, Alert and oriented to time, place, person, mood and affect Vital Signs Temp Pulse Resp BP Pulse Ox 97.9 F 92 18 112/75 100 09/21/18 06:33 09/21/18 06:55 09/21/18 06:33 09/21/18 06:43 09/21/18 06:33 Oxygen Flow Rate (L/min) 1 Oxygen Delivery Method Nasal Cannula Weight: 152 lb 12.485 oz Body Mass Index (BMI) 24.5 Intake and Output for Last 24 Hours 09/19/18 09/20/18 09/21/18 23:59 23:59 23:59 Intake Total 2342 / 3198 3713.4 / 3941.6 306.2 / 306.2 Output Total 1875 / 2675 1550 / 1550 Balance 2342 / 2273 1838.4 / 1266.6 -1243.8 / -1243.8 Microbiology Past 72 Hours 09/19/18 07:41 Blood Culture - Preliminary Blood Culture (Wb) - Right Wrist No growth in 48 hours. 09/19/18 12:10 Streptococcus pneumoniae Antigen (M - Final Urine Catheter - Silverio 09/19/18 12:10 Legionella Antigen - Final Urine Catheter - Silverio 09/19/18 11:40 Stool Occult Blood (DEENA) - Final Stool Occult Blood Positive Laboratory Tests Past 24 Hrs 09/19/18 09/19/18 09/20/18 06:22 22:30 12:40 WBC 8.5 RBC 3.34 L Hgb 8.9 L Hct 27.3 L MCV 81.7 MCH 26.6 L MCHC 32.6 RDW Std Deviation 46.6 H RDW Coeff of Carly 15.6 H Plt Count 239 MPV 8.8 Immature Gran % (Auto) 0.500 Neut % (Auto) 71.0 H Lymph % (Auto) 14.1 L [place] % (Auto) 9.5 Eos % (Auto) 4.3 Baso % (Auto) 0.6 Absolute Neuts (auto) 6.0 Absolute Lymphs (auto) 1.19 Absolute Nucleated RBC 0.00 Nucleated RBC % 0 PT INR APTT Sodium Potassium Chloride Carbon Dioxide Anion Gap BUN Creatinine Estim Creat Clear Calc Est GFR (MDRD) Af Amer Est GFR (MDRD) Non-Af BUN/Creatinine Ratio Glucose Calcium Vitamin B12 400 Blood Type O POSITIVE Antibody Screen NEGATIVE Crossmatch See Detail 09/21/18 09/21/18 09/21/18 05:10 05:10 05:10 WBC 9.3 RBC 3.39 L Hgb 9.0 L Hct 28.0 L MCV 82.6 MCH 26.5 L MCHC 32.1 RDW Std Deviation 48.0 H RDW Coeff of Carly 15.9 H Plt Count 228 MPV 9.3 Immature Gran % (Auto) 0.600 Neut % (Auto) 63.4 Lymph % (Auto) 19.2 [place] % (Auto) 11.1 H Eos % (Auto) 4.9 Baso % (Auto) 0.8 Absolute Neuts (auto) 5.9 Absolute Lymphs (auto) 1.79 Absolute Nucleated RBC 0.00 Nucleated RBC % 0 PT 14.3 INR 1.1 APTT 41.2 H Sodium 141 Potassium 4.4 Chloride 112 H Carbon Dioxide 21.0 Anion Gap 8 BUN 33 H Creatinine 1.52 H Estim Creat Clear Calc 27.17 Est GFR (MDRD) Af Amer 42 L Est GFR (MDRD) Non-Af 35 L BUN/Creatinine Ratio 21.7 H Glucose 143 H Calcium 9.6 Vitamin B12 Blood Type Antibody Screen Crossmatch POC Glucose 09/21/18 09/20/18 09/20/18 06:41 22:01 16:46 POC Glucose 124 H 194 H 160 H 09/20/18 11:55 POC Glucose 174 H Medical Necessity - Tobacco Use Smoking Status: Former smoker Tobacco Use: Non-smoker Assessment/Plan All Active Problems NSTEMI (non-ST elevated myocardial infarction) (Acute) Sepsis due to pneumonia (Acute) Anemia (Acute) Pneumonia (Acute) This is an 82 presented to the emergency room because of chest pain, found to have acute non-ST elevation NM, healthcare associated pneumonia with sepsis as well as acute on chronic anemia requiring blood transfusion. #1 acute non-ST elevation NM: Remained on aspirin, Plavix, statins and metoprolol. Her vital signs are stable. She is chest pain-free. 2D echocardiogram revealed ejection fraction of 45%, critical aortic stenosis. This event of acute non-ST elevation NM could be due to severe anemia in the setting of severe aortic stenosis that led to this cardiac event. Plan for cardiac catheterization today. #2 Healthcare associated pneumonia/sepsis: She is on IV vancomycin and Zosyn. Patient was admitted to the facility in the last 2 weeks, remained in the hospital for 4 days for antibiotics and she was discharged without antibiotic to home. Pneumococcal and Legionella antigen were negative. Blood cultures showed no growth in 48 hours. Plan to continue same treatment. #3 acute on chronic anemia: Baseline hemoglobin has been around 9 g/dL, which was 6.3 g/dL this admission. She received a total of 2 units of packed RBCs and today's hemoglobin is 9 g/dL. Her stool was positive for occult blood. She is on IV Protonix. General surgery consulted, recommended no endoscopy at this time until she is stable from cardiac standpoint. #4 type 2 diabetes mellitus: Blood sugar has been under fair control. At this time, she is only on sliding scale. #5 hypertension: At this time, blood pressure improved, she is asymptomatic. She is on metoprolol. Lisinopril discontinued. #6 stage III chronic kidney disease: Baseline creatinine has been around 1.1 to 1.3 mg/dL. Today's creatinine is 1.52, it has been going up and patient has been n.p.o. Plan to restart gentle IV fluids for hydration, repeat BMP tomorrow morning. #7 status post colostomy: No clear reason for why she had that colostomy. Wound/ostomy care nurse consulted. #8 history of trauma/paraplegia: Supportive care, positioning. #9 DVT prophylaxis: SCDs. No chemical prophylaxis because of acute anemia and probable GI bleed. This note was generated with [employer] dictation software. It may contain incorrect words, spelling, and punctuation that were not noted in checking the note before signing. Code Visit Inpatient E&M: 68002 Subs Hosp L2
[2018-09-21] MEDS: 0.9% Normal Saline 1,000 ML 60 ML IV ×2 (09:23→18:30)
[2018-09-21 10:15] LABS: Bedside Glucose 151 mg/dL (70-110)
--- NOTE | 2018-09-21 11:59 | PN.CARD_ITS ---
Subjectve: Patient seen and evaluated Objective: Vital Signs Temp Pulse Resp BP Pulse Ox 97.9 F 90 18 112/75 100 09/21/18 06:33 09/21/18 07:09 09/21/18 07:09 09/21/18 06:43 09/21/18 07:09 Oxygen Flow Rate (L/min) 1 Oxygen Delivery Method Nasal Cannula Weight: 152 lb 12.485 oz Body Mass Index (BMI) 24.5 Intake and Output for Last 24 Hours 09/19/18 09/20/18 09/21/18 23:59 23:59 23:59 Intake Total 2342 / 3198 3713.4 / 3941.6 306.2 / 306.2 Output Total 1875 / 2675 1550 / 1550 Balance 2342 / 2273 1838.4 / 1266.6 -1243.8 / -1243.8 General: Awake, Alert, Oriented x 3 HEENT: PERRL, EOMI, Sclera Non Icteric Neck: Supple, Good ROM, No Lymph Node Enlargement Lungs: Clear to auscultation Cardiovascular: Regular Rhythm, Normal S1, Normal S2, No Rubs, No Gallops Murmur Murmur: Grade 3/6, Early Systolic Vascular: No Carotid Bruits, Normal Femoral Pulses, Normal Radial Pulses, Normal Dorsalis Pedal Pulse, Normal Posterior Tibial Pulses Abdomen: Bowel Sounds Present, Soft, Non Tender, No HSM, No Organomegaly Extremities: No Cyanosis, No Clubbing, No edema Musculoskeletal: No Erythema Skin: No Rashes Lymphatic: No Lymph Node Enlargement Neurological: No Focal Motor or Sensory Deficit Psych/Mental Status: Appropriate 09/20/18 12:40: WBC 8.5, RBC 3.34 L, Hgb 8.9 L, Hct 27.3 L, MCV 81.7, MCH 26.6 L , MCHC 32.6, Plt Count 239, MPV 8.8, Immature Gran % (Auto) 0.500, Neut % (Auto) 71.0 H, Lymph % (Auto) 14.1 L, [place] % (Auto) 9.5, Eos % (Auto) 4.3, Baso % (Auto) 0.6, Absolute Neuts (auto) 6.0, Nucleated RBC % 0 09/21/18 05:10: WBC 9.3, RBC 3.39 L, Hgb 9.0 L, Hct 28.0 L, MCV 82.6, MCH 26.5 L , MCHC 32.1, Plt Count 228, MPV 9.3, Immature Gran % (Auto) 0.600, Neut % (Auto) 63.4, Lymph % (Auto) 19.2, [place] % (Auto) 11.1 H, Eos % (Auto) 4.9, Baso % (Auto) 0.8, Absolute Neuts (auto) 5.9, Nucleated RBC % 0 09/21/18 05:10: Sodium 141, Potassium 4.4, Chloride 112 H, Carbon Dioxide 21.0, Anion Gap 8, BUN 33 H, Creatinine 1.52 H, Est GFR (MDRD) Af Amer 42 L, Est GFR (MDRD) Non-Af 35 L, BUN/Creatinine Ratio 21.7 H, Glucose 143 H, Calcium 9.6 09/21/18 05:10: PT 14.3, INR 1.1, APTT 41.2 H Rhythm: EKG: ECHO: Stress Test: Cardiac Cath: PCI: CT Surgery: Holter monitor: EPS: PPM: CXR: Chest CT Scan: Medical Necessity - Tobacco Use Smoking Status: Former smoker Tobacco Use: Non-smoker Assessment/Plan 1. Non-ST elevation myocardial infarction * Patient presents with chest discomfort and nonspecific other complaints and is noted to have abnormal cardiac enzymes with a non-ST elevation myocardial infarction. * She concomitantly has severe anemia and is currently undergoing packed red blood cell count transfusion. * Cardiac catheterization today demonstrated mild left main coronary artery disease * Left anterior descending artery with moderate mid segment disease and ostial diagonal disease * Left circumflex artery with no high-grade stenosis * Dominant right coronary artery with moderate proximal stenosis, mid 95% stenosis and mid to distal 90% stenosis * Based on the above angiographic findings the patient will be considered for angioplasty and stenting of the above. * It appears on review of her records that she recently underwent an upper endoscopy which demonstrated gastritis. * We will therefore recommend deferring colonoscopy for now. * 2. Murmur suggestive of aortic stenosis * Will confirm above with echocardiogram which demonstrated severe aortic stenosis with a peak gradient of over 100 mmHg * Will discuss with patient later about possibly TAVR * * Thank you for allowing me to participate in the care of your patient. Please don't hesitate to call if any issues arise
--- NOTE | 2018-09-21 12:38 | CL.D_ITS ---
Patient Name: ISIDORO HILL Study Date: 09/21/2018 Performing: Viktor Morris MD Ht: 66.14 inches 168 cm : 1935 Wt: 152.12 lbs 69 kg Age: 83 Gender: female BSA: 1.78 PROCEDURE(S) PERFORMED [id number] W OR WO PTCA, SINGLE CORONARY ARTERY CLINICAL PROFILE AND INDICATIONS Indications: Suspected CAD Heart Failure: None Stress/Imaging Stress/Image Study Performed: No CONCLUSIONS Severe aortic stenosis. Severe disease noted of the proximal and mid right coronary artery, mild disease noted of the circumf kendra artery and moderate disease of the left anterior descending artery. RECOMMENDATIONS Referred for immediate PCI Consider TAVR as an outpatient DESCRIPTION OF PROCEDURE The patient arrived to the procedure lab. The risks and benefits of the procedure as well as a full d escription of our services here and current unavailability of surgical backup were fully explained to the patient and/or their significant other prior to the catheterization. The Timeout was completed, verifying the correct patient and procedure. The patient's procedural site was prepped and draped in the usual fashion. Local anesthetic was given subcutaneously to right groin region with Lidocaine 2%. Using a modified Seldinger technique, arterial access was obtained via the right femoral artery, a 5 Fr sheath was inserted. Left Coronary Artery selective angiography was performed in multiple views u sing a 5 Fr. JL4 catheter. Right Coronary Artery selective angiography was then performed in multiple views using a 5 Fr. 3DRC (Rajan) catheter. CORONARY ANGIOGRAPHY DOMINANCE: Right Dominant LEFT HEART ASSESSMENT Left Ventricular Ejection Fraction: by Echo 55 % Apical Hypokinesis - Mild LEFT MAIN: Moderate calcification, ostial 30% % Stenosis LEFT ANTERIOR DESCENDING ARTERY: MID LAD: 60 % Stenosis DIAGONAL 1: Ostial - 50 % Stenosis CIRCUMFLEX ARTERY: Mild luminal irregularities less than 30% RIGHT CORONARY ARTERY: PROX RCA: Mild luminal irregularities less than 30% MID RCA: 95 % Stenosis DISTAL RCA: 75 % Stenosis COMPLICATIONS PROCEDURE MEDICATIONS Versed 1 mg IV Fentanyl 25 mcg IV Lasix 40 mg IV 09/21/2018 11:43:39 Heparin 6000 unit(s) IV 09/21/2018 11:53:37 SUMMARY OF HEMODYNAMIC DATA Time AIR REST ECG 11:18:46 AO 117/66 (87) SA 11:27:34 Signed By Viktor Morris MD On 09/21/2018 12:37:21 Viktor Morris MD
--- NOTE | 2018-09-21 13:00 | EKG12_ITS ---
Test Reason : AM EKG Blood Pressure : / mmHG Vent. Rate : 095 BPM Atrial Rate : 095 BPM P-R Int : 188 ms QRS Dur : 094 ms QT Int : 362 ms P-R-T Axes : 080 -34 131 degrees QTc Int : 454 ms Normal sinus rhythm Left axis deviation Left ventricular hypertrophy with repolarization abnormality Inferior infarct , age undetermined Abnormal ECG When compared with ECG of 21-SEP-2018 13:09, MANUAL COMPARISON REQUIRED, DATA IS UNCONFIRMED Confirmed by KRISTEN HIRSCH, SONI ([id number]), publication editor LILLIANA IBARRA ([id number]) on 09/24/2018 9:56:47 AM Referred By: RIZWANA Confirmed By:MARVIN PETERSON MD
[2018-09-21] MEDS: 0.9% Normal Saline 1,000 ML 150 ML IV (13:15)
[2018-09-21] MEDS: Vancomycin IV 1,000 MG/200 ML BAG 200 MG IV (13:23)
[2018-09-21 14:26] LABS: ACT Activated Clotting Time 213 sec (74-137)
[2018-09-21 14:45] LABS: ACT Activated Clotting Time 164 sec (74-137)
--- NOTE | 2018-09-21 15:53 | CL.I_ITS ---
Patient Name: ISIDORO HILL Study Date: 09/21/2018 Performing: Anastacio Hernandez MD Ht: 66 inches 168 cm : 1935 Wt: 152.3 lbs 69 kg Age: 83 Gender: female BSA: 1.78 PROCEDURE(S) PERFORMED [id number] W OR WO PTCA, SINGLE CORONARY ARTERY CLINICAL PROFILE AND CO-MORBIDITIES Indications: Suspected CAD, ACS <= 24 hrs, Suspected CAD, Valvular Disease, Pre-Operative Evaluat ion Heart Failure: None Stress/Imaging Stress/Image Study Performed: No Stress/Image Study Performed: No CAD Presentations: Unstable angina. Non-STEMI. Symptom onset Date/Time: 09/20/2018 Time Not Availa ble Comorbidities/Risk Factors: Hypertension Dyslipidemia CONCLUSIONS Successful PTCA/CARMELO of Mid RCA with a 3.0 x 38 Promus Synergy, followed immediately upstream with a 3 .0 x 20 Promus Synergy, post dilated proximally with a 3.5 x 8 NC Balloon; 85%-->0%, no dissection. RECOMMENDATIONS Highly recommend quitting all tobacco products Follow up with primary first calender worker Risk factor modification ASA Indefinitley Plavix for at least 12 months Routine post interventional care Refer for Outpatient Cardiac Rehab Manual sheath removal per protocol Follow up with Dr. Morris Pt may proceed with EGD/C scope if indicated for anemia. Keep Hgb>8.0. Manual sheath removal. DESCRIPTION OF PROCEDURE The patient arrived to the procedure lab. The risks and benefits of the procedure as well as a full d escription of our services here and current unavailability of surgical backup were fully explained to the patient and/or their significant other prior to the catheterization. The Timeout was completed, verifying the correct patient and procedure. The patient's procedural site was prepped and draped in the usual fashion. Local anesthetic was given subcutaneously to right groin region with Lidocaine 2% Using a modified Seldinger technique,arterial access was obtained via the right femoral artery, a 5Fr sheath was inserted. Left Coronary Artery selective angiography was performed in multiple views usin g a 5 Fr. JL4 catheter. Right Coronary Artery selective angiography was then performed in multiple vi ews using a 5 Fr. 3DRC (Rajan) catheter.The images were reviewed and options discussed. A decision was then made to proceed with an Intervention, IVUS or other adjunct procedure. Arterial sheath was exchanged for a 6 Fr , 45cm Sheath. HS II Guide catheter was inserted and eng aged into the RCA. BMW Guide wire was advanced to the RCA. runthrough Guide wire was advanced to the RCA. 2.0x12 emerge Balloon catheter was advanced across lesion in the right coronary, mid. PTCA ballo on inflated at 6 atms for 7 secs. PTCA balloon inflated at 6 atms for 8 secs. PTCA balloon inflated a t 8 atms for 6 secs. PTCA balloon inflated at 8 atms for 10 secs. PTCA balloon inflated at 8 atms for 6 secs. PTCA balloon inflated at 10 atms for 7 secs. 3.0x38 Drug Eluting stent was advanced across t he lesion in the right coronary, mid. 3.0x20 Drug Eluting stent was advanced across the lesion in the right coronary, mid. 3.5x8 NC Emerge Balloon catheter was advanced across lesion in the right yee ry, mid. Angiogram performed post stent deployment. The arterial sheath was sutured in place and ca pped INTERVENTION INFORMATION LESION SITE: RCA (Mid) Lesion Complexity: High/C, lesion at bifurcation: No, thrombus present: No, lesion length: 58 mm, cul prit lesion: Yes Pre Stenosis: 85 % Pre intervention KIRSTY flow: 3 PROCEDURE: Drug Eluting Stent with pre and post dilatation Post Stenosis: 0 % Post intervention KIRSTY flow: 3 Lesion Devices: [place] Genomicstronic 6 Fr HSII 100cm Guide Catheter Tran .014 BMW Ubly Straight 190cm Donny Sci EMERGE MR 2.00x12 BALLOON Terumo .014 Runthrough Extra Floppy 180cm straight Donny Sci Synergy MR CARMELO 3.00x38 Donny Sci Synergy MR CARMELO 3.00x20 Donny Sci NC EMERGE MR 3.50x08 BALLOON COMPLICATIONS No Complications PROCEDURE MEDICATIONS Versed 1 mg IV Fentanyl 25 mcg IV Lasix 40 mg IV 09/21/2018 11:43:39 Heparin 6000 unit(s) IV 09/21/2018 11:53:37 Nitro 200 mcg IC 09/21/2018 12:36:27 SUMMARY OF HEMODYNAMIC DATA Time AIR REST ECG 11:18:46 AO 117/66 (87) SA 11:27:34 Signed By Anastacio Hernandez MD On 09/21/2018 15:51:44 Anastacio Hernandez MD
[2018-09-21] MEDS: Ferrous Gluconate 324 MG Tablet PO (16:36)
[2018-09-21] MEDS: Multivitamins,Therapeutic Tablet 1 TABLET PO (16:36)
[2018-09-21 16:45] LABS: Bedside Glucose 140 mg/dL (70-110)
[2018-09-21] MEDS: Atorvastatin Calcium 20 MG Tablet PO (21:48)
[2018-09-21 22:35] LABS: Bedside Glucose 139 mg/dL (70-110)
[2018-09-22] VITALS (28 sets, daily range): BP systolic 91–122; BP diastolic 52–87; PULSE 78–112; RESP 18–27; TEMP 36.3–36.7; O2SAT 95–100
[2018-09-22 05:04] LABS: Absolute Lymphocyte Count 1.99 X10^3/uL (0.83-4.51); Basophil# 0.05 X10^3/uL; Basophil% 0.5 % (0-1); Eosinophil# 0.45 X10^3/uL; Eosinophils% 4.7 % (0-5); Hematocrit 27.8 % (37-47); Hemoglobin 8.8 g/dL (12.0-15.0); Lymphocyte # 1.99 X10^3/ul (4.0); Lymphocyte % 20.8 % (19-41); Mean Corp Hgb Conc 31.7 g/dL (32-36); Mean Corpuscular Hgb 26.6 pg (27.0-32.0); Mean Platelet Vol. 9.3 fl (6.2-12.0); Monocyte# 1.07 X10^3/uL; Monocyte% 11.2 % (0-10); NRBC Flagged by Analyzer 0 % (0-5); Neutrophil # 5.95 X10^3/uL (2.7-7.7); Neutrophil % 62.3 % (47-70); Platelet Count 265 K/mm3 (150-450); RBC Distribution Width SD 49.1 fl (35.1-43.9); Red Blood Count 3.31 M/mm3 (4.2-5.4); White Blood Count 9.6 K/mm3 (4.4-11.0)
[2018-09-22 06:31] LABS: Bedside Glucose 128 mg/dL (70-110)
[2018-09-22] MEDS: Ipratropium/Albuterol Sulfate 3 ML AMPUL.NEB INHALATION ×3 (06:37→19:06)
--- NOTE | 2018-09-22 07:59 | PN.CARD_ITS ---
Subjectve: Patient seen and evaluated. Appears to be doing well. No complaints. More concerned about her frank strips this morning. Objective: Vital Signs Temp Pulse Resp BP Pulse Ox 98.1 F 94 26 H 108/60 97 09/22/18 04:00 09/22/18 07:00 09/22/18 07:00 09/22/18 07:00 09/22/18 07:00 Oxygen Flow Rate (L/min) 2 Oxygen Delivery Method Room Air Weight: 152 lb 12.485 oz Body Mass Index (BMI) 24.5 Intake and Output for Last 24 Hours 09/20/18 09/21/18 09/22/18 23:59 23:59 23:59 Intake Total 3713.4 / 3941.6 1538.2 / 2489.2 1614.2 / 1614.2 Output Total 1875 / 2675 3200 / 3650 700 / 700 Balance 1838.4 / 1266.6 -1661.8 / -1160.8 914.2 / 914.2 General: Awake, Alert, Oriented x 3 HEENT: PERRL, EOMI, Sclera Non Icteric Neck: Supple, Good ROM, No Lymph Node Enlargement Lungs: Clear to auscultation Cardiovascular: Regular Rhythm, Normal S1, Normal S2, No Rubs, No Gallops Murmur Murmur: Grade 3/6, Early Systolic Vascular: No Carotid Bruits, Normal Femoral Pulses, Normal Radial Pulses, Normal Dorsalis Pedal Pulse, Normal Posterior Tibial Pulses Abdomen: Bowel Sounds Present, Soft, Non Tender, No HSM, No Organomegaly Extremities: No Cyanosis, No Clubbing, No edema Neurological: No Focal Motor or Sensory Deficit 09/22/18 04:55: WBC 9.6, RBC 3.31 L, Hgb 8.8 L, Hct 27.8 L, MCV 84.0, MCH 26.6 L , MCHC 31.7 L, Plt Count 265, MPV 9.3, Immature Gran % (Auto) 0.500, Neut % (Auto) 62.3, Lymph % (Auto) 20.8, [place] % (Auto) 11.2 H, Eos % (Auto) 4.7, Baso % (Auto) 0.5, Absolute Neuts (auto) 6.0, Nucleated RBC % 0 Rhythm: EKG: ECHO: Stress Test: Cardiac Cath: PCI: CT Surgery: Holter monitor: EPS: PPM: CXR: Chest CT Scan: Medical Necessity - Tobacco Use Smoking Status: Former smoker Tobacco Use: Non-smoker Assessment/Plan 1. Non-ST elevation myocardial infarction * Patient presents with chest discomfort and nonspecific other complaints and is noted to have abnormal cardiac enzymes with a non-ST elevation myocardial infarction. * She concomitantly has severe anemia and underwent packed red blood cell count transfusion. * Cardiac catheterization demonstrated mild left main coronary artery disease * Left anterior descending artery with moderate mid segment disease and ostial diagonal disease * Left circumflex artery with no high-grade stenosis * Dominant right coronary artery with moderate proximal stenosis, mid 95% stenosis and mid to distal 90% stenosis * Based on the above angiographic findings the patient underwent angioplasty and stenting of the right coronary artery which he tolerated well. EKG this morning demonstrates no remarkable changes and hemoglobin is stable and groin site is stable. * It appears on my review of her records that she recently underwent an upper endoscopy which demonstrated gastritis. * We will therefore recommend deferring colonoscopy for now. * 2. Murmur suggestive of aortic stenosis * Echocardiogram which demonstrated severe aortic stenosis with a peak gradient of over 100 mmHg * Will discuss with patient later about possibly TAVR * * * Can transfer to progressive care unit. May need extended care facility. * Thank you for allowing me to participate in the care of your patient. Please don't hesitate to call if any issues arise
[2018-09-22] MEDS: Clopidogrel Bisulfate 75 MG Tablet PO (08:28)
[2018-09-22] MEDS: Aspirin E.C. 81 MG Tablet PO (08:28)
[2018-09-22] MEDS: Ferrous Gluconate 324 MG Tablet PO ×2 (08:28→16:11)
[2018-09-22] MEDS: Metoprolol(XL)Succ 25 MG Tablet 12.5 MG PO (08:28)
[2018-09-22 08:30] LABS: Bedside Glucose 125 mg/dL (70-110)
[2018-09-22] MEDS: Multivitamins,Therapeutic Tablet 1 TABLET PO (08:30)
--- NOTE | 2018-09-22 08:55 | CRPHASE1_ITS ---
Patient Communication PHII Cardiac Rehab Discussed with Patient:: Yes Guide to Cardiac Rehab Given to Patient:: Yes Cardiac Rehab Facility Choice List Given to Patient:: Yes Choice Program [facility] CR PHII:: Communication Given to CR, Refer to [facility] Choice Program Other:: Communication Given to CR, With permission faxed order and referral information [employer] Sales Consultant:: Anastacio Hernandez Refer Phase II Cardiac Rehab:: Yes Sessions:: 36 sessions - 3 days/wk, 12 weeks Risk Factors/Lifestyle Smoking Status: Former smoker Hx Hypertension: Yes Hx Diabetes Mellitus Type 1: No Hx Diabetes Mellitus Type 2: Yes Hx Metabolic Disorders: Yes Hx Dyslipidemia: No Hx Obesity: No - bmi 24.6 Post-Menopausal: Yes Stress: Home/Family Risk Factor for Sedentary Lifestyle: Moderate Risk Past Cardiac Illness: Coronary Artery Disease, Previous PCI w/Stent Laboratory Values: Cardiac Rehab Phase I Labs 6.3 % (4.2-6.3) 09/19/18 06:22 Triglycerides 149 mg/dL (-199) 09/20/18 05:00 Cholesterol 102 mg/dL (200) 09/20/18 05:00 38 mg/dL (0-130) 09/20/18 05:00 34 mg/dL (40-) L 09/20/18 05:00 Phase I Education Given On:: [place], Nutrition, Antiplatelet medication Knowledge of Condition:: Yes Learning Preferences: Verbal, Written Hospital Course Presenting Symptoms:: NSTEMI Medical/Surgical History [place]:: Yes - NSTEMI CAD:: Yes Cardiomyopathy:: No Diabetes:: Yes Diabetes Type I:: No Diabetes Type II:: Yes Hypertension:: Yes Dyslipidemia:: No PTCA:: Yes Discharge/Home/Social Eval Discharge Disposition: Home Cardiac Rehabilitation Info Cardiac Rehabilitation Program Information: Cardiac Rehabilitation is important for patients like you who are recovering from a heart problem. Cardiac rehabilitation programs are recognized as integral to the continued care of the patient with coronary heart disease. The cardiac rehabilitation program is designed to optimize a patient's physical, psychological, and social functioning. Health animal care provider work in cardiac rehabilitation programs and assist you with getting the treatments you need to get stronger and healthier - like exercise, healthy eating habits, and medications. Cardiac rehabilitation has been show to help people with heart problems live longer and have better life enjoyment than people who do not go to cardiac rehabilitation. Please contact the Cardiac Rehabilitation Program at [facility] at in two weeks if you have not heard from them.
--- NOTE | 2018-09-22 08:57 | CRPH1.INSTRU ---
General Education CAD and cardiac anatomy and function:: Patient communicates acknowledgment Explanation of diagnoses and procedures:: Patient communicates acknowledgment Sign/Symptoms of W[place]:: Patient communicates acknowledgment Antiplatelet therapy: Patient communicates acknowledgment Proper use of NTG-SL: Not instructed Emergency procedures and activation of EMS: Patient communicates acknowledgment Compliance of all prescribed medications: Patient communicates acknowledgment Smoking Recommendations Include:: Previous smoker; encourage continued cessation Nicotine/Smoking Response Code:: Patient communicates acknowledgment Dyslipidemia Recommendations Include:: Lipid profile provided, Reviewed NCEP/ATP guidelines, Therapeutic Lifestyle Change dietary guidelines Dyslipidemia Response Code:: Patient communicates acknowledgment Overweight/Obesity Patient Overweight/Obesity Risk Factors Are:: BMI Normal [18-25 & < 65 years old] Hypertension Recommendations Include:: BP <130/80 if diabetic, DASH dietary guidelines, Decrease/maintain normal body weight, Moderation of ETOH Hypertension:: Patient communicates acknowledgment Heart Disease Patient Heart Disease Risk Factors Are:: Previous cardiac event Heart Disease Response Code:: Patient communicates acknowledgment Diabetes Patient Diabetes Risk Factors Are:: Elevated blood sugars Recommendations Include:: Maintain fasting blood sugars 70-110 md/dL, Maintain HgbA1c of 6% or less, Monitor blood sugar as prescribed, Diabetic dietary guidelines, Decrease/maintain body weight Diabetes:: Patient communicates acknowledgment Metabolic Syndrome Patient Metabolic Syndrome Risk Factors Are [3 of 5]:: Fasting blood sugar > 100 mg/dL, Hypertension, Low HDL <40 [male] or < 50 [female] Recommendations Include:: Reinforce compliance to risk factor modifications, Patient is diabetic, Encouraged follow-up with Primary Care Physician Metabolic Syndrome Response Code:: Patient communicates acknowledgment Sedentary Patient Sedentary Risk Factors Are:: Lack of regular exercise Recommendations Include:: Aerobic exercise 5-7 times/week for 20-30 minutes continuously, Benefits of regular exercise, Discussed home walking program, Monitored Outpatient Cardiac Rehab Sedentary Response Code:: Patient communicates acknowledgment Stress Recommendations Include:: Identification of stressors, and assessment of coping skills, Stress management techniques Stress Response Code:: Patient communicates acknowledgment
--- NOTE | 2018-09-22 10:00 | EKG12_ITS ---
Test Reason : CP Blood Pressure : / mmHG Vent. Rate : 127 BPM Atrial Rate : 127 BPM P-R Int : 104 ms QRS Dur : 100 ms QT Int : 320 ms P-R-T Axes : 000 -36 110 degrees QTc Int : 465 ms Sinus tachycardia with short KS Left axis deviation Left ventricular hypertrophy with repolarization abnormality Cannot rule out Septal infarct , age undetermined Inferior infarct , age undetermined Abnormal ECG When compared with ECG of 23-SEP-2018 04:28, MANUAL COMPARISON REQUIRED, DATA IS UNCONFIRMED Confirmed by KRISTEN HIRSCH, SONI ([id number]), editor at large LILLIANA IBARRA ([id number]) on 09/27/2018 2:12:42 PM Referred By: DR WAGONER Confirmed By:MARVIN PETERSON MD
--- NOTE | 2018-09-22 10:00 | PN_ITS ---
Patient Problems: Active and Suspected Problems (Last Updated 09/21/18 @ 18:42 by Desiree Hong) NSTEMI (non-ST elevated myocardial infarction) (Acute) Sepsis due to pneumonia (Acute) Anemia (Acute) Subjective: Chief complaint: Follow-up after admission for healthcare associated pneumonia/sepsis, acute non-ST elevation WI status post PTCI, acute on chronic anemia. Patient seen and examined. No acute events overnight. Today, she denies chest pain or shortness of breath. She denied abdominal pain, nausea or vomiting. She is afebrile, slightly tachycardic, blood pressure stable, pulse ox is maintained on room air. - Physical Exam General: Alert, Oriented x3, Cooperative, No apparent distress HEENT: Atraumatic, PERRLA, EOMI, Normocephalic Oral: Moist Mucosa, No Gingival or Mucosal Lesions/ Ulcerations Neck: Supple, No JVD, Negative Carotid Bruits Lungs: Clear to auscultation, No rhonchi, No wheeze, No rales, Diminished Cardiovascular: Regular rate, Regular Rhythm, Normal S1, Normal S2, Murmur - Systolic murmur., Tachycardic Abdomen: Bowel Sounds Present, Soft, Non Tender, Non-Distended, No Hepato- splenomegaly, - - Colostomy bag in place. Extremities: No clubbing, No cyanosis, No edema Skin: No rashes, No breakdown Lymphatic: No Cervical, Supraclavicular, or Inguinal Adenopathy Neurological: Cranial nerves II-XII grossly intact, Neuro grossly intact Psych/Mental Status: Normal Affect, Appropriate, Alert and oriented to time, place, person, mood and affect Vital Signs Temp Pulse Resp BP Pulse Ox 98.1 F 108 H 26 H 112/66 95 09/22/18 04:00 09/22/18 09:00 09/22/18 09:00 09/22/18 09:00 09/22/18 09:00 Oxygen Flow Rate (L/min) 2 Oxygen Delivery Method Room Air Weight: 152 lb 12.485 oz Body Mass Index (BMI) 24.5 Intake and Output for Last 24 Hours 09/20/18 09/21/18 09/22/18 23:59 23:59 23:59 Intake Total 3713.4 / 3941.6 1538.2 / 2489.2 1614.2 / 1614.2 Output Total 1875 / 2675 3200 / 3650 700 / 700 Balance 1838.4 / 1266.6 -1661.8 / -1160.8 914.2 / 914.2 Microbiology Past 72 Hours 09/19/18 07:41 Blood Culture - Preliminary Blood Culture (Wb) - Right Wrist No growth in 48 hours. 09/19/18 12:10 Streptococcus pneumoniae Antigen (M - Final Urine Catheter - Silverio 09/19/18 12:10 Legionella Antigen - Final Urine Catheter - Silverio 09/19/18 11:40 Stool Occult Blood (DEENA) - Final Stool Occult Blood Positive Laboratory Tests Past 24 Hrs 09/21/18 09/21/18 09/22/18 12:40 14:35 04:55 WBC 9.6 RBC 3.31 L Hgb 8.8 L Hct 27.8 L MCV 84.0 MCH 26.6 L MCHC 31.7 L RDW Std Deviation 49.1 H RDW Coeff of Carly 16.0 H Plt Count 265 MPV 9.3 Immature Gran % (Auto) 0.500 Neut % (Auto) 62.3 Lymph % (Auto) 20.8 Burnett % (Auto) 11.2 H Eos % (Auto) 4.7 Baso % (Auto) 0.5 Absolute Neuts (auto) 6.0 Absolute Lymphs (auto) 1.99 Absolute Nucleated RBC 0.00 Nucleated RBC % 0 Activated Clotting Time 213 H 164 H POC Glucose 09/22/18 09/22/18 09/21/18 08:24 06:27 22:06 POC Glucose 125 H 128 H 139 H 09/21/18 09/21/18 16:35 10:09 POC Glucose 140 H 151 H Medical Necessity - Tobacco Use Smoking Status: Former smoker Tobacco Use: Non-smoker Assessment/Plan All Active Problems (Last Updated 09/21/18 @ 18:42 by Desiree Hong) NSTEMI (non-ST elevated myocardial infarction) (Acute) Sepsis due to pneumonia (Acute) Anemia (Acute) Pneumonia (Acute) This is an 82 presented to the emergency room because of chest pain, found to have acute non-ST elevation WI, healthcare associated pneumonia with sepsis as well as acute on chronic anemia requiring blood transfusion. 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 She is on aspirin, Plavix, statins, metoprolol. She is slightly tachycardic, other vital signs are stable. 2D echocardiogram revealed ejection fraction of 45%, critical aortic stenosis. Plan: Increase metoprolol to 25 twice daily, continue other treatments, probably okay to transfer to PCU later today. #2 Healthcare associated pneumonia/sepsis: She is on IV vancomycin and Zosyn. She has been afebrile, no leukocytosis, pulse ox is maintained on room air. Pneumococcal and Legionella antigen were negative. Blood cultures showed no growth in 48 hours. Sputum cultures pending. Plan: DC IV vancomycin, continue IV Zosyn. #3 acute on chronic anemia: Baseline hemoglobin has been around 9 g/dL, which was 6.3 g/dL this admission. She received a total of 2 units of packed RBCs and today's hemoglobin is 8.8 g/dL. Her stool was positive for occult blood. She is on IV Protonix. Reportedly, patient had upper EGD sometime recently that showed gastritis but we are not able to locate the report. We tried to contact [facility] who stated that no scopes was done for this patient recently at that hospital. We are trying to call the son to clarify. Today, no indication for blood transfusion. #4 type 2 diabetes mellitus: Blood sugar has been stable. At this time, she is only on sliding scale. #5 hypertension: At this time, blood pressure stabilized. She is on metoprolol. Lisinopril discontinued. Plan to increase metoprolol as above. #6 stage III chronic kidney disease: Baseline creatinine has been around 1.1 to 1.3 mg/dL. Yesterday's creatinine is 1.52, plan to repeat BMP tomorrow morning. #7 status post colostomy: No clear reason for why she had that colostomy. Wound/ostomy care nurse consulted. #8 history of trauma/paraplegia: Supportive care, positioning. #9 DVT prophylaxis: SCDs. No chemical prophylaxis because of acute anemia and probable GI bleed. This note was generated with [employer] software. It may contain incorrect words, spelling, and punctuation that were not noted in checking the note before signing. Code Visit Inpatient E&M: 03925 Subs Hosp L2
--- NOTE | 2018-09-22 10:25 | NURSING ---
Colostomy appliance is intact to the left lower abdomen. there is a small amount of unformed antunez stool in the appliance. stoma is pink. appliance was changed on 09/20/18 by this nurse. will continue to follow.
[2018-09-22 12:20] LABS: Bedside Glucose 121 mg/dL (70-110)
--- NOTE | 2018-09-22 13:00 | EKG12_ITS ---
Test Reason : POST PCI Blood Pressure : / mmHG Vent. Rate : 091 BPM Atrial Rate : 091 BPM P-R Int : 190 ms QRS Dur : 090 ms QT Int : 352 ms P-R-T Axes : 078 -37 122 degrees QTc Int : 432 ms Normal sinus rhythm Left axis deviation Anteroseptal infarct , age undetermined ST & T wave abnormality, consider lateral ischemia Abnormal ECG When compared with ECG of 21-SEP-2018 05:39, MANUAL COMPARISON REQUIRED, DATA IS UNCONFIRMED Confirmed by KRISTEN HIRSCH, SONI ([id number]), loan expeditor LILLIANA IBARRA ([id number]) on 09/24/2018 9:57:05 AM Referred By: SHIRLEY Confirmed By:MARVIN PETERSON MD
[2018-09-22 13:42] LABS: Anion Gap 4 (5-15); BUN 28 mg/dL (7-18); BUN/Creat Ratio 20.6 RATIO (10-20); Calcium,Total 9.6 mg/dL (8.5-10.1); Chloride 111 mmol/L (98-107); Creatinine, Serum 1.36 mg/dL (0.55-1.02); EST Glomerular Filtration Rate 40 mL/min (>60); Est Glom Filt Rate - Afr Amer 48 mL/min (>60); Estimated Creatinine Clearance 30.37 ml/min; Glucose 121 mg/dL (74-106); Potassium 4.5 mmol/L (3.5-5.1); Sodium Level 137 mmol/L (136-145)
[2018-09-22] MEDS: LORazepam 1 MG Tablet PO (14:04)
--- NOTE | 2018-09-22 14:24 | PCM.PN.SRG ---
Patient Problems: Active and Suspected Problems (Last Updated 09/21/18 @ 18:42 by Desiree Hong) NSTEMI (non-ST elevated myocardial infarction) (Acute) Sepsis due to pneumonia (Acute) Anemia (Acute) Subjective: Patient denies any abdominal pain tolerating diet, colostomy with soft/liquid brown stool - Physical Exam General: Alert, Oriented x3, Cooperative, No apparent distress Abdomen: Soft, Non Tender, Non-Distended, - - Colostomy pink Vital Signs Temp Pulse Resp BP Pulse Ox 97.9 F 106 H 20 H 122/65 H 97 09/22/18 12:00 09/22/18 13:41 09/22/18 13:41 09/22/18 13:00 09/22/18 13:00 Oxygen Flow Rate (L/min) 2 Oxygen Delivery Method Room Air Weight: 152 lb 12.485 oz Body Mass Index (BMI) 24.5 Intake and Output for Last 24 Hours 09/20/18 09/21/18 09/22/18 23:59 23:59 23:59 Intake Total 3713.4 / 3941.6 1538.2 / 2489.2 1998.2 / 1998.2 Output Total 1875 / 2675 3200 / 3650 900 / 900 Balance 1838.4 / 1266.6 -1661.8 / -1160.8 1099.2 / 1099.2 Microbiology Past 72 Hours 09/21/18 16:40 Gram Stain - Final Sputum, Expectorated/Coughed 09/19/18 07:41 Blood Culture - Preliminary Blood Culture (Wb) - Right Wrist No growth in 48 hours. 09/19/18 12:10 Streptococcus pneumoniae Antigen (M - Final Urine Catheter - Silverio 09/19/18 12:10 Legionella Antigen - Final Urine Catheter - Silverio 09/19/18 11:40 Stool Occult Blood (DEENA) - Final Stool Occult Blood Positive Laboratory Tests Past 24 Hrs 09/21/18 09/21/18 09/22/18 12:40 14:35 04:55 WBC 9.6 RBC 3.31 L Hgb 8.8 L Hct 27.8 L MCV 84.0 MCH 26.6 L MCHC 31.7 L RDW Std Deviation 49.1 H RDW Coeff of Carly 16.0 H Plt Count 265 MPV 9.3 Immature Gran % (Auto) 0.500 Neut % (Auto) 62.3 Lymph % (Auto) 20.8 Moffat % (Auto) 11.2 H Eos % (Auto) 4.7 Baso % (Auto) 0.5 Absolute Neuts (auto) 6.0 Absolute Lymphs (auto) 1.99 Absolute Nucleated RBC 0.00 Nucleated RBC % 0 Activated Clotting Time 213 H 164 H Sodium Potassium Chloride Carbon Dioxide Anion Gap BUN Creatinine Estim Creat Clear Calc Est GFR (MDRD) Af Amer Est GFR (MDRD) Non-Af BUN/Creatinine Ratio Glucose Calcium 09/22/18 04:55 WBC RBC Hgb Hct MCV MCH MCHC RDW Std Deviation RDW Coeff of Carly Plt Count MPV Immature Gran % (Auto) Neut % (Auto) Lymph % (Auto) Moffat % (Auto) Eos % (Auto) Baso % (Auto) Absolute Neuts (auto) Absolute Lymphs (auto) Absolute Nucleated RBC Nucleated RBC % Activated Clotting Time Sodium 137 Potassium 4.5 Chloride 111 H Carbon Dioxide 22.0 Anion Gap 4 L BUN 28 H Creatinine 1.36 H Estim Creat Clear Calc 30.37 Est GFR (MDRD) Af Amer 48 L Est GFR (MDRD) Non-Af 40 L BUN/Creatinine Ratio 20.6 H Glucose 121 H Calcium 9.6 POC Glucose 09/22/18 09/22/18 09/22/18 12:16 08:24 06:27 POC Glucose 121 H 125 H 128 H 09/21/18 09/21/18 22:06 16:35 POC Glucose 139 H 140 H Medical Necessity - Tobacco Use Smoking Status: Former smoker Tobacco Use: Non-smoker Assessment/Plan All Active Problems (Last Updated 09/21/18 @ 18:42 by Desiree Hong) NSTEMI (non-ST elevated myocardial infarction) (Acute) Sepsis due to pneumonia (Acute) Anemia (Acute) Pneumonia (Acute) 83-year-old female with NSTEMI status post stent, with critical aortic stenosis, pneumonia, anemia 1. Patient's hemoglobin has remained stable at 8.9 after the 2 units couple days ago. Patient has been on IV Protonix twice daily. We will continue to monitor as long as hemoglobin remains stable may patient may have EGD as an outpatient and continue on Protonix 40 mg p.o. twice daily at home. On able to locate any records of her previous EGD. It was noted in 1 of the [facility] notes that she had a recent one. However son is unaware of anything recent. Patient's lap colostomy was placed in the [place] on 08/[address] Franco there was no EGD done at that time per [facility]. Ksenia Umñaa M.D. Pager: [phone] [facility] [address] [place] [address], [address] [place] [address] Office: [phone]
[2018-09-22] MEDS: Insulin Lispro 100 UNIT/ML INSULN.PEN SC (16:10)
[2018-09-22 16:15] LABS: Bedside Glucose 167 mg/dL (70-110)
[2018-09-22 22:26] LABS: Bedside Glucose 148 mg/dL (70-110)
[2018-09-23] VITALS (24 sets, daily range): BP systolic 116–156; BP diastolic 66–101; PULSE 83–125; RESP 15–22; TEMP 36.1–36.7; O2SAT 94–100; BMI 24.5
[2018-09-23] MEDS: Albuterol 2.5 MG/3 ML VIAL.NEB. INHALATION (04:16)
[2018-09-23 06:38] LABS: Anion Gap 7 (5-15); BUN 30 mg/dL (7-18); BUN/Creat Ratio 20.7 RATIO (10-20); Calcium,Total 9.3 mg/dL (8.5-10.1); Chloride 112 mmol/L (98-107); Creatinine, Serum 1.45 mg/dL (0.55-1.02); EST Glomerular Filtration Rate 37 mL/min (>60); Est Glom Filt Rate - Afr Amer 45 mL/min (>60); Estimated Creatinine Clearance 28.49 ml/min; Glucose 130 mg/dL (74-106); Potassium 4.2 mmol/L (3.5-5.1); Sodium Level 139 mmol/L (136-145)
[2018-09-23] MEDS: 0.9% NaCl Peripheral Flush Adult/Peds IV ×4 (06:39→21:21)
[2018-09-23] MEDS: Ondansetron 4 MG/2 ML Vial IV ×3 (06:40→21:21)
[2018-09-23 06:44] LABS: Absolute Neutrophil Count 4.7 X10^3/uL (2.0-7.7); Basophil# 0.06 X10^3/uL; Basophil% 0.8 % (0-1); Eosinophil# 0.46 X10^3/uL; Hematocrit 26.4 % (37-47); Hemoglobin 8.4 g/dL (12.0-15.0); Lymphocyte % 22.1 % (19-41); Mean Corp Hgb Conc 31.8 g/dL (32-36); Mean Corpuscular Hgb 26.8 pg (27.0-32.0); Mean Corpuscular Volume 84.3 fL (81-99); Mean Platelet Vol. 9.4 fl (6.2-12.0); Monocyte# 0.77 X10^3/uL; NRBC Flagged by Analyzer 0 % (0-5); Neutrophil # 4.66 X10^3/uL (2.7-7.7); Neutrophil % 60.7 % (47-70); Platelet Count 248 K/mm3 (150-450); RBC Distribution Width CV 16.4 % (11.6-14.6); RBC Distribution Width SD 50.3 fl (35.1-43.9); Red Blood Count 3.13 M/mm3 (4.2-5.4); White Blood Count 7.7 K/mm3 (4.4-11.0)
[2018-09-23] MEDS: Insulin Lispro 100 UNIT/ML INSULN.PEN SC ×2 (06:45→21:21)
[2018-09-23 06:51] LABS: Bedside Glucose 170 mg/dL (70-110)
[2018-09-23] MEDS: Ipratropium/Albuterol Sulfate 3 ML AMPUL.NEB INHALATION ×2 (07:28→21:34)
--- NOTE | 2018-09-23 08:04 | PCM.PROGNOTE ---
Patient Problems: Active and Suspected Problems (Last Updated 09/21/18 @ 18:42 by Desiree Hong) NSTEMI (non-ST elevated myocardial infarction) (Acute) Sepsis due to pneumonia (Acute) Anemia (Acute) Subjective: Chief complaint: Follow-up after admission for healthcare associated pneumonia/sepsis, acute non-ST elevation AL status post PTCI, acute on chronic anemia. Patient seen and examined. No acute events overnight. This morning, she is sleepy and apparently, she was not able to sleep last night. She said that she wished she can sleep a little. Denied chest pain or shortness of breath. Denied abdominal pain, nausea or vomiting. Her vital signs are stable. - Physical Exam General: Alert, Oriented x3, Cooperative, No apparent distress HEENT: Atraumatic, PERRLA, EOMI, Normocephalic Oral: Moist Mucosa, No Gingival or Mucosal Lesions/ Ulcerations Neck: Supple, No JVD, Negative Carotid Bruits, Trachea Midline, Thyroid Normal Size and Texture Lungs: Clear to auscultation, No rhonchi, No wheeze, No rales, Diminished Cardiovascular: Regular rate, Regular Rhythm, Normal S1, Normal S2, Murmur - Systolic murmur. Abdomen: Bowel Sounds Present, Soft, Non Tender, Non-Distended, No Hepato-splenomegaly, - - Colostomy bag in place. Extremities: No clubbing, No cyanosis, No edema Skin: No rashes, No breakdown Lymphatic: No Cervical, Supraclavicular, or Inguinal Adenopathy Neurological: Cranial nerves II-XII grossly intact, - - Paraplegia. Psych/Mental Status: Flat Affect Vital Signs Temp Pulse Resp BP Pulse Ox 97.5 F L 84 18 116/68 99 09/23/18 05:55 09/23/18 07:22 09/23/18 05:55 09/23/18 05:55 09/23/18 05:55 Oxygen Flow Rate (L/min) 2 Oxygen Delivery Method Nasal Cannula Weight: 152 lb 12.485 oz Body Mass Index (BMI) 24.5 Intake and Output for Last 24 Hours 09/21/18 09/22/18 09/23/18 23:59 23:59 23:59 Intake Total 1538.2 / 2489.2 2478.2 / 2478.2 83.7 / 83.7 Output Total 3200 / 3650 1300 / 1300 425 / 425 Balance -1661.8 / -1160.8 1178.2 / 1178.2 -341.3 / -341.3 Microbiology Past 72 Hours 09/21/18 16:40 Gram Stain - Final Sputum, Expectorated/Coughed 09/19/18 07:41 Blood Culture - Preliminary Blood Culture (Wb) - Right Wrist No growth in 48 hours. Laboratory Tests Past 24 Hrs 09/22/18 09/23/18 09/23/18 04:55 05:50 05:50 WBC 7.7 RBC 3.13 L Hgb 8.4 L Hct 26.4 L MCV 84.3 MCH 26.8 L MCHC 31.8 L RDW Std Deviation 50.3 H RDW Coeff of Carly 16.4 H Plt Count 248 MPV 9.4 Immature Gran % (Auto) 0.400 Neut % (Auto) 60.7 Lymph % (Auto) 22.1 Barren % (Auto) 10.0 Eos % (Auto) 6.0 H Baso % (Auto) 0.8 Absolute Neuts (auto) 4.7 Absolute Lymphs (auto) 1.70 Absolute Nucleated RBC 0.00 Nucleated RBC % 0 Sodium 137 139 Potassium 4.5 4.2 Chloride 111 H 112 H Carbon Dioxide 22.0 20.0 L Anion Gap 4 L 7 BUN 28 H 30 H Creatinine 1.36 H 1.45 H Estim Creat Clear Calc 30.37 28.49 Est GFR (MDRD) Af Amer 48 L 45 L Est GFR (MDRD) Non-Af 40 L 37 L BUN/Creatinine Ratio 20.6 H 20.7 H Glucose 121 H 130 H Calcium 9.6 9.3 POC Glucose 09/23/18 09/22/18 09/22/18 06:43 22:16 16:08 POC Glucose 170 H 148 H 167 H 09/22/18 09/22/18 12:16 08:24 POC Glucose 121 H 125 H Medical Necessity - Tobacco Use Smoking Status: Former smoker Tobacco Use: Non-smoker Assessment/Plan All Active Problems (Last Updated 09/21/18 @ 18:42 by Desiree Hong) NSTEMI (non-ST elevated myocardial infarction) (Acute) Sepsis due to pneumonia (Acute) Anemia (Acute) Pneumonia (Acute) This is an 82 presented to the emergency room because of chest pain, found to have acute non-ST elevation AL, healthcare associated pneumonia with sepsis as well as acute on chronic anemia requiring blood transfusion. #1 acute non-ST elevation AL: Status post PTCA/CARMELO to mid RCA. She is on aspirin, Plavix, statins, metoprolol. Vital signs stable, heart rate improved. 2D echocardiogram revealed ejection fraction of 45%, critical aortic stenosis. Plan: Continue same treatment. #2 Healthcare associated pneumonia/sepsis: She is on IV Zosyn, vancomycin discontinued. She has been afebrile, no leukocytosis, pulse ox is maintained on 2 L. Pneumococcal and Legionella antigen were negative. Blood cultures showed no growth in 48 hours. Sputum cultures pending. Plan to continue same treatment. #3 acute on chronic anemia: Today's hemoglobin is 8.4 g/dL, dropped down from 8.8 g/dL yesterday. Baseline hemoglobin has been around 9 g/dL, which was 6.3 g/dL this admission. She received a total of 2 units of packed RBCs. Her stool was positive for occult blood. She is on IV Protonix. Plan for upper EGD today. #4 type 2 diabetes mellitus: Blood sugar has been stable. At this time, she is only on sliding scale. #5 hypertension: At this time, blood pressure stabilized. She is on metoprolol. Lisinopril discontinued. Plan to increase metoprolol as above. #6 stage III chronic kidney disease: Baseline creatinine has been around 1.1 to 1.3 mg/dL. Yesterday's creatinine is 1.52, plan to repeat BMP tomorrow morning. #7 status post colostomy: No clear reason for why she had that colostomy. Wound/ostomy care nurse consulted. #8 history of trauma/paraplegia: Supportive care, positioning. #9 DVT prophylaxis: SCDs. No chemical prophylaxis because of acute anemia and probable GI bleed. This note was generated with [employer] software. It may contain incorrect words, spelling, and punctuation that were not noted in checking the note before signing. Code Visit Inpatient E&M: 42257 Subs Hosp L2
--- NOTE | 2018-09-23 08:05 | PCM.PN.SRG ---
Patient Problems: Active and Suspected Problems (Last Updated 09/21/18 @ 18:42 by Desiree Hong) NSTEMI (non-ST elevated myocardial infarction) (Acute) Sepsis due to pneumonia (Acute) Anemia (Acute) Subjective: Patient denies any abdominal pain/chest pain. Patient hemoglobin is 8.4 from 8.9, colostomy still having brown stools - Physical Exam General: Alert, Oriented x3, Cooperative, No apparent distress Lungs: Normal air movement Cardiovascular: Regular rate Abdomen: Soft, Non Tender, Non-Distended, - - Colostomy pink with brown stool in bag Vital Signs Temp Pulse Resp BP Pulse Ox 97.5 F L 84 18 116/68 99 09/23/18 05:55 09/23/18 07:22 09/23/18 05:55 09/23/18 05:55 09/23/18 05:55 Oxygen Flow Rate (L/min) 2 Oxygen Delivery Method Nasal Cannula Weight: 152 lb 12.485 oz Body Mass Index (BMI) 24.5 Intake and Output for Last 24 Hours 09/21/18 09/22/18 09/23/18 23:59 23:59 23:59 Intake Total 1538.2 / 2489.2 2478.2 / 2478.2 83.7 / 83.7 Output Total 3200 / 3650 1300 / 1300 425 / 425 Balance -1661.8 / -1160.8 1178.2 / 1178.2 -341.3 / -341.3 Microbiology Past 72 Hours 09/21/18 16:40 Gram Stain - Final Sputum, Expectorated/Coughed 09/19/18 07:41 Blood Culture - Preliminary Blood Culture (Wb) - Right Wrist No growth in 48 hours. Laboratory Tests Past 24 Hrs 09/22/18 09/23/18 09/23/18 04:55 05:50 05:50 WBC 7.7 RBC 3.13 L Hgb 8.4 L Hct 26.4 L MCV 84.3 MCH 26.8 L MCHC 31.8 L RDW Std Deviation 50.3 H RDW Coeff of Carly 16.4 H Plt Count 248 MPV 9.4 Immature Gran % (Auto) 0.400 Neut % (Auto) 60.7 Lymph % (Auto) 22.1 Walton % (Auto) 10.0 Eos % (Auto) 6.0 H Baso % (Auto) 0.8 Absolute Neuts (auto) 4.7 Absolute Lymphs (auto) 1.70 Absolute Nucleated RBC 0.00 Nucleated RBC % 0 Sodium 137 139 Potassium 4.5 4.2 Chloride 111 H 112 H Carbon Dioxide 22.0 20.0 L Anion Gap 4 L 7 BUN 28 H 30 H Creatinine 1.36 H 1.45 H Estim Creat Clear Calc 30.37 28.49 Est GFR (MDRD) Af Amer 48 L 45 L Est GFR (MDRD) Non-Af 40 L 37 L BUN/Creatinine Ratio 20.6 H 20.7 H Glucose 121 H 130 H Calcium 9.6 9.3 POC Glucose 09/23/18 09/22/18 09/22/18 06:43 22:16 16:08 POC Glucose 170 H 148 H 167 H 09/22/18 09/22/18 12:16 08:24 POC Glucose 121 H 125 H Medical Necessity - Tobacco Use Smoking Status: Former smoker Tobacco Use: Non-smoker Assessment/Plan All Active Problems (Last Updated 09/21/18 @ 18:42 by Desiree Hong) NSTEMI (non-ST elevated myocardial infarction) (Acute) Sepsis due to pneumonia (Acute) Anemia (Acute) Pneumonia (Acute) 83-year-old female with NSTEMI status post stent, with critical aortic stenosis, pneumonia, anemia 1. Discussed with patient also personally discussed with patient's son who is also POA plan to do an EGD due to the anemia and positive fecal occult blood. Unable to find any recent record of patient having an EGD done previously, other than a note stating that it showed gastritis from [facility]. Scheduled for noon today. I have offered the patient EGD for evaluation. I have explained the risks/benefits of the procedure and described the procedure. I have discussed the risks with the patient, including but not limited to: infection, bleeding, perforation of the GI tract requiring emergency surgery, inability to complete the procedure, injury to any internal organs, complications of anesthesia, etc. - the patient understands and agrees to proceed. I have answered all the patient's questions to the patient's satisfaction and the patient has no further questions. Ksenia Umaña M.D. Pager: [phone] [facility] [place] [facility] [address] [place] [address], [address] [place] [id number] Office: [phone] Code Visit Inpatient E&M: 32731 Subs Hosp L2
[2018-09-23] MEDS: 0.9% Normal Saline 1,000 ML 75 ML IV (08:42)
--- NOTE | 2018-09-23 10:00 | EKG12_ITS ---
Test Reason : AM EKG Blood Pressure : / mmHG Vent. Rate : 090 BPM Atrial Rate : 090 BPM P-R Int : 172 ms QRS Dur : 098 ms QT Int : 362 ms P-R-T Axes : 065 -30 149 degrees QTc Int : 442 ms Normal sinus rhythm Left axis deviation Left ventricular hypertrophy with repolarization abnormality Cannot rule out Septal infarct , age undetermined Inferior infarct , age undetermined Abnormal ECG When compared with ECG of 22-SEP-2018 05:13, MANUAL COMPARISON REQUIRED, DATA IS UNCONFIRMED Confirmed by KRISTEN HIRSCH, SONI ([id number]), newspaper editor LILLIANA IBARRA ([id number]) on 09/24/2018 9:47:26 AM Referred By: DR WAGONER Confirmed By:MARVIN PETERSON MD
--- NOTE | 2018-09-23 11:15 | NURSING ---
report called to [facility] in endo
--- NOTE | 2018-09-23 12:36 | OP.ENDO_ITS ---
09/23/2018 Nico Chapman Re : Upper GI endoscopy procedure for Merry Chahal Dear Adela This procedure was performed on August. My impressions and recommendations are as follows: Impressions : - Z-line variable, 40 cm from the incisors. - Erythematous mucosa in the pylorus. - Normal examined duodenum. - No specimens collected. Recommendations : - [facility]. - Resume regular diet. - Use Protonix (pantoprazole) 40 mg PO daily at discharge. - Continue present medications. My findings are described in the full procedure note, which is enclosed. If I can be of further assistance, please feel free to contact me at Doctor phone number(s): , Work: . Sincerely, MD Ksenia Rueda MD 09/23/2018 12:35:55 PM This report has been signed electronically.
[2018-09-23] MEDS: Aspirin E.C. 81 MG Tablet PO (12:57)
[2018-09-23] MEDS: Metoprolol(XL)Succ 25 MG Tablet PO (12:57)
[2018-09-23] MEDS: Multivitamins,Therapeutic Tablet 1 TABLET PO (12:57)
[2018-09-23] MEDS: Ferrous Gluconate 324 MG Tablet PO ×2 (12:57→17:22)
[2018-09-23] MEDS: Clopidogrel Bisulfate 75 MG Tablet PO (12:57)
--- NOTE | 2018-09-23 13:22 | NURSING ---
report of procedure called to son per request
[2018-09-23 14:21] LABS: Bedside Glucose 118 mg/dL (70-110)
[2018-09-23 17:20] LABS: Bedside Glucose 111 mg/dL (70-110)
[2018-09-23] MEDS: Pantoprazole Sodium 40 MG Tablet PO (17:22)
[2018-09-23] MEDS: Metoclopramide 10 MG/2 ML Vial 5 MG IV (19:03)
--- NOTE | 2018-09-23 19:33 | EKG12_ITS ---
Test Reason : ARRYTH Blood Pressure : / mmHG Vent. Rate : 102 BPM Atrial Rate : 102 BPM P-R Int : 200 ms QRS Dur : 102 ms QT Int : 356 ms P-R-T Axes : 000 -38 017 degrees QTc Int : 463 ms Sinus tachycardia with occasional Premature ventricular complexes Left axis deviation Septal infarct , age undetermined Cannot rule out Inferior infarct , age undetermined Abnormal ECG Confirmed by ALAN WATSON ([id number]), telegraph editor LILLIANA IBARRA ([id number]) on 10/01/2018 8:59:58 AM Referred By: Confirmed By:ALAN WATSON
--- NOTE | 2018-09-23 19:33 | NURSING ---
called for ekg due to hr increase feeling sob o2 on nauseated
[2018-09-23] MEDS: Furosemide 40 MG/4 ML Vial IV (19:50)
[2018-09-23] MEDS: LORazepam 1 MG Tablet PO (20:15)
[2018-09-23] MEDS: Atorvastatin Calcium 20 MG Tablet PO (21:21)
[2018-09-23 21:35] LABS: Bedside Glucose 231 mg/dL (70-110)
[2018-09-24] VITALS (13 sets, daily range): BP systolic 105–148; BP diastolic 63–82; PULSE 84–107; RESP 18–21; TEMP 36.4–36.6; O2SAT 92–99
[2018-09-24] MEDS: MELATONIN 3 MG TABLET PO (00:09)
[2018-09-24] MEDS: Furosemide 40 MG/4 ML Vial IV ×2 (06:39→11:46)
[2018-09-24] MEDS: 0.9% NaCl Peripheral Flush Adult/Peds IV (06:40)
[2018-09-24 06:50] LABS: Absolute Lymphocyte Count 1.59 X10^3/uL (0.83-4.51); Absolute Neutrophil Count 4.6 X10^3/uL (2.0-7.7); Basophil# 0.06 X10^3/uL; Basophil% 0.8 % (0-1); Eosinophil# 0.39 X10^3/uL; Eosinophils% 5.3 % (0-5); Hematocrit 25.5 % (37-47); Lymphocyte # 1.59 X10^3/ul (4.0); Lymphocyte % 21.7 % (19-41); Mean Corp Hgb Conc 31.4 g/dL (32-36); Mean Corpuscular Hgb 26.7 pg (27.0-32.0); Mean Platelet Vol. 8.9 fl (6.2-12.0); Monocyte# 0.71 X10^3/uL; Monocyte% 9.7 % (0-10); NRBC Flagged by Analyzer 0 % (0-5); Neutrophil # 4.55 X10^3/uL (2.7-7.7); Neutrophil % 62.1 % (47-70); Platelet Count 250 K/mm3 (150-450); RBC Distribution Width CV 16.8 % (11.6-14.6); RBC Distribution Width SD 52.2 fl (35.1-43.9); White Blood Count 7.3 K/mm3 (4.4-11.0)
[2018-09-24 06:51] LABS: Bedside Glucose 102 mg/dL (70-110)
[2018-09-24 07:19] LABS: Anion Gap 7 (5-15); BUN 28 mg/dL (7-18); BUN/Creat Ratio 18.1 RATIO (10-20); Calcium,Total 9.1 mg/dL (8.5-10.1); Chloride 110 mmol/L (98-107); Creatinine, Serum 1.55 mg/dL (0.55-1.02); EST Glomerular Filtration Rate 34 mL/min (>60); Est Glom Filt Rate - Afr Amer 41 mL/min (>60); Estimated Creatinine Clearance 26.65 ml/min; Glucose 108 mg/dL (74-106); Potassium 4.4 mmol/L (3.5-5.1); Sodium Level 138 mmol/L (136-145)
[2018-09-24] MEDS: Ipratropium 0.5 MG/2.5 ML SOLUTION INHALATION (07:46)
[2018-09-24] MEDS: Ferrous Gluconate 324 MG Tablet PO ×2 (08:22→18:30)
[2018-09-24] MEDS: Multivitamins,Therapeutic Tablet 1 TABLET PO (08:22)
[2018-09-24] MEDS: Aspirin E.C. 81 MG Tablet PO (08:22)
--- NOTE | 2018-09-24 09:17 | PN.SURG_ITS ---
Patient Problems: Active and Suspected Problems (Last Updated 09/21/18 @ 18:42 by Desiree Hong) NSTEMI (non-ST elevated myocardial infarction) (Acute) Sepsis due to pneumonia (Acute) Anemia (Acute) Subjective: Patient tolerating diet, denies abdominal pain or chest pain. Patient's hemoglobin is 8.0, patient did have she is with fluid overload overnight did receive IV Lasix last night and this morning - Physical Exam General: Alert, Oriented x3, Cooperative, No apparent distress Abdomen: Soft, Non Tender, Non-Distended, - - Colostomy pink, brown loose stool in bag Vital Signs Temp Pulse Resp BP Pulse Ox 97.8 F 85 18 133/73 H 99 09/24/18 08:07 09/24/18 08:07 09/24/18 08:07 09/24/18 08:07 09/24/18 08:07 Oxygen Flow Rate (L/min) 1 Oxygen Delivery Method Nasal Cannula Weight: 152 lb 12.485 oz Body Mass Index (BMI) 24.5 Intake and Output for Last 24 Hours 09/22/18 09/23/18 09/24/18 23:59 23:59 23:59 Intake Total 2478.2 / 2478.2 1635.7 / 1635.7 335 / 335 Output Total 1300 / 1300 1050 / 1050 1275 / 1275 Balance 1178.2 / 1178.2 585.7 / 585.7 -940 / -940 Microbiology Past 72 Hours 09/21/18 16:40 Gram Stain - Final Sputum, Expectorated/Coughed Respiratory Culture - Preliminary Appears to be normal respiratory tuan. Further studies to follow. 09/19/18 07:41 Blood Culture - Preliminary Blood Culture (Wb) - Right Wrist No growth in 48 hours. Laboratory Tests Past 24 Hrs 09/24/18 09/24/18 06:25 06:25 WBC 7.3 RBC 3.00 L Hgb 8.0 L Hct 25.5 L MCV 85.0 MCH 26.7 L MCHC 31.4 L RDW Std Deviation 52.2 H RDW Coeff of Carly 16.8 H Plt Count 250 MPV 8.9 Immature Gran % (Auto) 0.400 Neut % (Auto) 62.1 Lymph % (Auto) 21.7 [place] % (Auto) 9.7 Eos % (Auto) 5.3 H Baso % (Auto) 0.8 Absolute Neuts (auto) 4.6 Absolute Lymphs (auto) 1.59 Absolute Nucleated RBC 0.00 Nucleated RBC % 0 Sodium 138 Potassium 4.4 Chloride 110 H Carbon Dioxide 21.0 Anion Gap 7 BUN 28 H Creatinine 1.55 H Estim Creat Clear Calc 26.65 Est GFR (MDRD) Af Amer 41 L Est GFR (MDRD) Non-Af 34 L BUN/Creatinine Ratio 18.1 Glucose 108 H Calcium 9.1 POC Glucose 09/24/18 09/23/18 09/23/18 06:46 21:19 17:13 POC Glucose 102 231 H 111 H 09/23/18 13:03 POC Glucose 118 H Medical Necessity - Tobacco Use Smoking Status: Former smoker Tobacco Use: Non-smoker Assessment/Plan All Active Problems (Last Updated 09/21/18 @ 18:42 by Desiree Hong) NSTEMI (non-ST elevated myocardial infarction) (Acute) Sepsis due to pneumonia (Acute) Anemia (Acute) Pneumonia (Acute) 83-year-old female with NSTEMI status post stent, with critical aortic stenosis, pneumonia, anemia 1. EGD only showed some mild gastritis recommend staying on Protonix 40 mg p.o. daily no obvious areas of previous bleeding. 2. Anemia?patient's hemoglobin is 8.0. Initially it was 6.3 after 2 units it went up to 9 however should have only gone up to about 8.3. Under some the fluid shifts have affected the hemoglobin. No plans to do a colonoscopy currently since patient would be at high risk with her critical aortic stenosis and recent and STEMI/stent and Dr. Morris in agreement. Dr. Morris will talk to Dr. Pena & pt may get 1 unit of packed red blood cells today. No plans for any current surgical intervention. Call with questions. Dr. Demetri pastrana will be covering this weekend. Ksneia Umaña M.D. Pager: [phone] [facility] [address] [place] [address], [facility], [address] [place] [id number] Office: [phone] Code Visit Inpatient E&M: 88610 Subs Hosp L1
[2018-09-24] MEDS: Pantoprazole Sodium 40 MG Tablet PO (09:41)
[2018-09-24] MEDS: Metoprolol(XL)Succ 25 MG Tablet PO (09:41)
[2018-09-24] MEDS: Clopidogrel Bisulfate 75 MG Tablet PO (09:41)
--- NOTE | 2018-09-24 09:58 | PCM.PROGNOTE ---
Patient Problems: Active and Suspected Problems (Last Updated 09/21/18 @ 18:42 by Desiree Hong) NSTEMI (non-ST elevated myocardial infarction) (Acute) Sepsis due to pneumonia (Acute) Anemia (Acute) Subjective: Chief complaint: Follow-up after admission for healthcare associated pneumonia/sepsis, acute non-ST elevation KS status post PTCI, acute on chronic anemia. Patient seen and examined. Overnight, patient became more short of breath, dyspneic, tachycardic and she received current dose of IV Lasix. This morning, she feels better, less short of breath. Heart rate is down to 80s, pulse ox is 99% on 1 L. She required up to 2.5 L last night. She denied abdominal pain, nausea vomiting. Denies chest pain. Blood pressure stable. - Physical Exam General: Alert, Oriented x3, Cooperative, - - Minimally short of breath. HEENT: Atraumatic, PERRLA, EOMI, Normocephalic Oral: Moist Mucosa, No Gingival or Mucosal Lesions/ Ulcerations Neck: Supple, No JVD, Negative Carotid Bruits, Trachea Midline, Thyroid Normal Size and Texture Lungs: Clear to auscultation, No wheeze, No rales, Diminished, Rhonchi Cardiovascular: Regular rate, Regular Rhythm, Normal S1, Normal S2, PMI Normal, Murmur - Systolic murmur. Abdomen: Bowel Sounds Present, Soft, Non Tender, Non-Distended, No Hepato-splenomegaly, - - Colostomy bag in place. Extremities: No clubbing, No cyanosis, No edema Skin: No rashes, No breakdown Lymphatic: No Cervical, Supraclavicular, or Inguinal Adenopathy Neurological: Cranial nerves II-XII grossly intact, - - Paraplegia. Psych/Mental Status: Normal Affect, Appropriate Vital Signs Temp Pulse Resp BP Pulse Ox 97.8 F 85 18 133/73 H 99 09/24/18 08:07 09/24/18 09:41 09/24/18 08:07 09/24/18 09:41 09/24/18 08:07 Oxygen Flow Rate (L/min) 1 Oxygen Delivery Method Nasal Cannula Weight: 152 lb 12.485 oz Body Mass Index (BMI) 24.5 Intake and Output for Last 24 Hours 07/24/19 07/25/19 07/26/19 23:59 23:59 23:59 Intake Total 2478.2 / 2478.2 1635.7 / 1635.7 335 / 335 Output Total 1300 / 1300 1050 / 1050 1275 / 1275 Balance 1178.2 / 1178.2 585.7 / 585.7 -940 / -940 Microbiology Past 72 Hours 09/21/18 16:40 Gram Stain - Final Sputum, Expectorated/Coughed Respiratory Culture - Final Yeast 09/19/18 07:41 Blood Culture - Preliminary Blood Culture (Wb) - Right Wrist No growth in 48 hours. Laboratory Tests Past 24 Hrs 09/24/18 09/24/18 06:25 06:25 WBC 7.3 RBC 3.00 L Hgb 8.0 L Hct 25.5 L MCV 85.0 MCH 26.7 L MCHC 31.4 L RDW Std Deviation 52.2 H RDW Coeff of Carly 16.8 H Plt Count 250 MPV 8.9 Immature Gran % (Auto) 0.400 Neut % (Auto) 62.1 Lymph % (Auto) 21.7 [place] % (Auto) 9.7 Eos % (Auto) 5.3 H Baso % (Auto) 0.8 Absolute Neuts (auto) 4.6 Absolute Lymphs (auto) 1.59 Absolute Nucleated RBC 0.00 Nucleated RBC % 0 Sodium 138 Potassium 4.4 Chloride 110 H Carbon Dioxide 21.0 Anion Gap 7 BUN 28 H Creatinine 1.55 H Estim Creat Clear Calc 26.65 Est GFR (MDRD) Af Amer 41 L Est GFR (MDRD) Non-Af 34 L BUN/Creatinine Ratio 18.1 Glucose 108 H Calcium 9.1 POC Glucose 09/24/18 09/23/18 09/23/18 06:46 21:19 17:13 POC Glucose 102 231 H 111 H 09/23/18 13:03 POC Glucose 118 H Medical Necessity - Tobacco Use Smoking Status: Former smoker Tobacco Use: Non-smoker Assessment/Plan All Active Problems (Last Updated 09/21/18 @ 18:42 by Desiree Hong) NSTEMI (non-ST elevated myocardial infarction) (Acute) Sepsis due to pneumonia (Acute) Anemia (Acute) Pneumonia (Acute) This is an 82 presented to the emergency room because of chest pain, found to have acute non-ST elevation KS, healthcare associated pneumonia with sepsis as well as acute on chronic anemia requiring blood transfusion. #1 acute non-ST elevation KS: Status post PTCA/CARMELO to mid RCA. Remained on aspirin, Plavix, statins, metoprolol. This morning, vital signs stable, heart rate improved. 2D echocardiogram revealed ejection fraction of 45%, critical aortic stenosis. Overnight, patient became more short of breath, dyspneic and tachycardic. Patient received large amounts of IV fluids. She received couple of dose of IV Lasix. This morning, she feels and looks better, oxygen requiring has been decreasing and heart rate stabilized. Plan: Change Lasix to p.o., continue other treatments, anticipate discharge home tomorrow. #2 Healthcare associated pneumonia/sepsis: Remained on IV Zosyn, vancomycin discontinued. She has been afebrile, no leukocytosis, pulse ox is maintained on 2 L. Pneumococcal and Legionella antigen were negative. Blood cultures showed no growth in 48 hours. Sputum cultures revealed yeast, no bacteria. Plan to DC IV Zosyn, start oral Augmentin. #3 acute on chronic anemia: Today's hemoglobin is 8 g/dL. Baseline hemoglobin has been around 9 g/dL, which was 6.3 g/dL this admission. She received a total of 2 units of packed RBCs. Her stool was positive for occult blood. Upper EGD performed revealed mild gastritis, no ulcers or bleeding. She is on Protonix. #4 type 2 diabetes mellitus: Blood sugar has been stable. At this time, she is only on sliding scale. #5 hypertension: Blood pressure stable, continue metoprolol and Lasix. Lisinopril discontinued. #6 stage III chronic kidney disease: Baseline creatinine has been around 1.1 to 1.3 mg/dL. Today's creatinine is 1.55, close to baseline. Likely due to because of IV Lasix. #7 status post colostomy: No clear reason for why she had that colostomy. Wound/ostomy care nurse consulted. #8 history of trauma/paraplegia: Supportive care, positioning. #9 DVT prophylaxis: SCDs. No chemical prophylaxis because of acute anemia and probable GI bleed. This note was generated with [employer] software. It may contain incorrect words, spelling, and punctuation that were not noted in checking the note before signing. Code Visit Inpatient E&M: 42938 Subs Hosp L2
--- NOTE | 2018-09-24 10:00 | EKG12_ITS ---
Test Reason : AM EKG Blood Pressure : / mmHG Vent. Rate : 080 BPM Atrial Rate : 080 BPM P-R Int : 186 ms QRS Dur : 100 ms QT Int : 384 ms P-R-T Axes : 037 -29 159 degrees QTc Int : 442 ms Normal sinus rhythm Left ventricular hypertrophy with repolarization abnormality Cannot rule out Septal infarct , age undetermined Inferior infarct , age undetermined Abnormal ECG When compared with ECG of 23-SEP-2018 19:26, MANUAL COMPARISON REQUIRED, DATA IS UNCONFIRMED Confirmed by KRISTEN HIRSCH, SONI ([id number]), administrative job titles LILLIANA IBARRA ([id number]) on 09/27/2018 2:11:41 PM Referred By: NINA Confirmed By:MARVIN PETERSON MD
[2018-09-24 11:36] LABS: Bedside Glucose 138 mg/dL (70-110)
[2018-09-24] MEDS: Amox/Clavulanate 500 MG Tablet PO ×2 (11:53→18:30)
[2018-09-24 12:32] LABS: Hematocrit 27.4 % (37-47); Hemoglobin 8.9 g/dL (12.0-15.0)
--- NOTE | 2018-09-24 13:10 | CASEMGMT ---
Addendum entered by Priscilla Mendes 09/24/18 13:47: This RN CM to room to discuss discharge plan with pt at this time. Pt is A/Ox4 at this time and answers all questions appropriately at this time. Pt states that she would like to go home and is interested in [facility] at this time for PT/OT. Pt declines RN for wound care at this time, stating my son takes care of that.' Pt states 'I just want someone to do exercises with me.' This RN CM advised her that PT/OT would be able to do that and pt states she would like that set up at this time. Pt's son had informed this RN CM that HHC was not necessary previously but pt states she would like it at this time and states 'Can I still have it?' This RN CM advised her that she is the pt, she is alert/oriented, and it is her decision about her care and pt was satisfied with this at this time. Call to Tiffanie at [facility] and she states that they can take pt at this time. Order placed in [facility] at this time for PT/OT. Anna CARRIZALES CM Original Note: Call to pt's son to verify discharge plan at this time and message left with son to call this RN CM back when able. Anna CARRIZALES CM
[2018-09-24] MEDS: HYDROcodone Bitartrate/Apap 5/325 Tablet PO (14:57)
--- NOTE | 2018-09-24 15:54 | PN.CARD_ITS ---
Subjectve: Patient seen and evaluated. Appears to be doing better now. Events of last night noted. Objective: Vital Signs Temp Pulse Resp BP Pulse Ox 97.8 F 107 H 18 148/82 H 95 09/24/18 14:59 09/24/18 14:59 09/24/18 14:59 09/24/18 14:59 09/24/18 14:59 Oxygen Flow Rate (L/min) 1 Oxygen Delivery Method Nasal Cannula Weight: 152 lb 12.485 oz Body Mass Index (BMI) 24.5 Intake and Output for Last 24 Hours 09/22/18 09/23/18 09/24/18 23:59 23:59 23:59 Intake Total 2478.2 / 2478.2 1635.7 / 1635.7 1047 / 1047 Output Total 1300 / 1300 1050 / 1050 1925 / 1925 Balance 1178.2 / 1178.2 585.7 / 585.7 -878 / -878 General: Awake, Alert, Oriented x 3 HEENT: PERRL, EOMI, Sclera Non Icteric Neck: Supple, Good ROM, No Lymph Node Enlargement Lungs: Clear to auscultation Cardiovascular: Regular Rhythm, Normal S1, Normal S2, No Murmurs, No Rubs, No Gallops Vascular: No Carotid Bruits, Normal Femoral Pulses, Normal Radial Pulses, Normal Dorsalis Pedal Pulse, Normal Posterior Tibial Pulses Abdomen: Bowel Sounds Present, Soft, Non Tender, No HSM, No Organomegaly Extremities: No Cyanosis, No Clubbing, No edema Musculoskeletal: No Erythema Skin: No Rashes Lymphatic: No Lymph Node Enlargement Neurological: No Focal Motor or Sensory Deficit Psych/Mental Status: Appropriate 09/24/18 06:25: WBC 7.3, RBC 3.00 L, Hgb 8.0 L, Hct 25.5 L, MCV 85.0, MCH 26.7 L , MCHC 31.4 L, Plt Count 250, MPV 8.9, Immature Gran % (Auto) 0.400, Neut % (Auto) 62.1, Lymph % (Auto) 21.7, [place] % (Auto) 9.7, Eos % (Auto) 5.3 H, Baso % (Auto) 0.8, Absolute Neuts (auto) 4.6, Nucleated RBC % 0 09/24/18 06:25: Sodium 138, Potassium 4.4, Chloride 110 H, Carbon Dioxide 21.0, Anion Gap 7, BUN 28 H, Creatinine 1.55 H, Est GFR (MDRD) Af Amer 41 L, Est GFR (MDRD) Non-Af 34 L, BUN/Creatinine Ratio 18.1, Glucose 108 H, Calcium 9.1 09/24/18 12:15: Hgb 8.9 L, Hct 27.4 L Rhythm: EKG: ECHO: Stress Test: Cardiac Cath: PCI: CT Surgery: Holter monitor: EPS: PPM: CXR: Chest CT Scan: Medical Necessity - Tobacco Use Smoking Status: Former smoker Tobacco Use: Non-smoker Assessment/Plan 1. Non-ST elevation myocardial infarction * Patient presents with chest discomfort and nonspecific other complaints and is noted to have abnormal cardiac enzymes with a non-ST elevation myocardial infarction. * She concomitantly has severe anemia and underwent packed red blood cell count transfusion. * Cardiac catheterization demonstrated mild left main coronary artery disease * Left anterior descending artery with moderate mid segment disease and ostial diagonal disease * Left circumflex artery with no high-grade stenosis * Dominant right coronary artery with moderate proximal stenosis, mid 95% stenosis and mid to distal 90% stenosis * Based on the above angiographic findings the patient underwent angioplasty and stenting of the right coronary artery which he tolerated well. EKG this morning demonstrates no remarkable changes and hemoglobin is stable and groin site is stable. * Upper GI did not demonstrate any significant abnormalities. * We will therefore recommend deferring colonoscopy for now. Above discussed with the surgeon. * 2. Murmur suggestive of aortic stenosis * Echocardiogram which demonstrated severe aortic stenosis with a peak gradient of over 100 mmHg * Will discuss with patient later about possibly TAVR * * 3. Mild congestive heart failure * Above likely secondary to fluid overload. Has been diuresed. We will continu e daily diuretics. * Will prepare for outpatient extended care facility. * Thank you for allowing me to participate in the care of your patient. Please don't hesitate to call if any issues arise
[2018-09-24 17:15] LABS: Bedside Glucose 177 mg/dL (70-110)
[2018-09-24] MEDS: Furosemide 20 MG Tablet PO (20:20)
[2018-09-24] MEDS: Atorvastatin Calcium 20 MG Tablet PO (22:12)
[2018-09-24] MEDS: Insulin Lispro 100 UNIT/ML INSULN.PEN SC (22:12)
[2018-09-24] MEDS: Metoprolol Tartrate 25 MG Tablet PO (22:12)
[2018-09-24 22:20] LABS: Bedside Glucose 161 mg/dL (70-110)
--- NOTE | 2018-09-24 22:42 | NURSING ---
Attempted multiple times to change pt's sacral dressing, pt refused each time, says she wants to rest. Will attempt in the morning. Dipti, RN
[2018-09-25] VITALS (11 sets, daily range): BP systolic 125–139; BP diastolic 69–78; PULSE 79–96; RESP 16–20; TEMP 36.3–37; O2SAT 94–98
[2018-09-25] MEDS: Ondansetron 4 MG/2 ML Vial IV (02:58)
[2018-09-25] MEDS: HYDROcodone Bitartrate/Apap 5/325 Tablet PO (04:01)
[2018-09-25] MEDS: Mag Hydrox/Al Hydrox/Simeth 30 ML UDC PO (04:01)
[2018-09-25] MEDS: Insulin Lispro 100 UNIT/ML INSULN.PEN SC ×3 (06:41→16:44)
[2018-09-25 06:56] LABS: Bedside Glucose 163 mg/dL (70-110)
--- NOTE | 2018-09-25 08:44 | PCM.DC ---
- Discharge Diagnoses Current Active Problems: Current Active and Chronic Problems (Last Updated 09/21/18 @ 18:42 by Desiree Hong) NSTEMI (non-ST elevated myocardial infarction) (Acute) Sepsis due to pneumonia (Acute) Anemia (Acute) You will use the following diet at home:: Calorie/Carbohydrate Controlled (specify 1200, 1400, etc) - 1800 joo., Cardiac Your food should be the consistency of: Regular Discharge Activity: Return to Normal Activity Weight Bearing Status: No weight bearing Call your doctor if you observe: Fever of 101 or Higher, Shortness of breath, Dizziness, Fainting spells, Chest pain, Increased palpitations (irregular heartbeat), Uncontrolled pain Allergies/Adverse Reactions: Allergies No Known Allergies Allergy (Verified 01/12/14 18:03) Medications to take at Discharge Insulin Lispro [Humalog] unit SQ TIDCM 01/13/14 Multivitamin 1 tab PO DAILY 09/19/18 Aspirin [Aspirin EC] 81 mg PO DAILY 09/20/18 Atorvastatin Calcium 40 mg PO DAILY 09/20/18 Colace 1 tab PO QHS 09/20/18 Donepezil HCl 5 mg PO QHS 09/20/18 Potassium Chloride [K-Dur] 20 meq PO DAILY 09/20/18 Amox/Clavulanate Tablet [Augmentin Tablet] 500 mg PO BIDCM #10 tab 09/25/18 Atorvastatin Calcium [Lipitor] 20 mg PO QHS #90 tab 09/25/18 Clopidogrel Bisulfate [Plavix] 75 mg PO DAILY #90 tab 09/25/18 Ferrous Gluconate 324 mg PO BIDCM #90 tab 09/25/18 Furosemide [Lasix] 20 mg PO DAILY #30 tab 09/25/18 Humulin 70-30 Vial 15 units SQ QHS #0 09/25/18 Metoprolol Tartrate [Lopressor (beta edgard)] 25 mg PO BID #90 tab 09/25/18 Pantoprazole Sodium [Protonix] 40 mg PO DAILY #90 tab 09/25/18 The following prescriptions were given: Amox/Clavulanate Tablet [Augmentin Tablet] 500 mg PO BIDCM #10 tab Transmission Status: Pending to [facility] Ferrous Gluconate 324 mg PO BIDCM #90 tab Transmission Status: Pending to [facility] [facility] Furosemide [Lasix] 20 mg PO DAILY #30 tab Transmission Status: Pending to [facility] [place] [facility] Atorvastatin Calcium [Lipitor] 20 mg PO QHS #90 tab Transmission Status: Pending to [facility] [place] [facility] Metoprolol Tartrate [Lopressor (beta edgard)] 25 mg PO BID #90 tab Transmission Status: Pending to [facility] [place] [facility] Clopidogrel Bisulfate [Plavix] 75 mg PO DAILY #90 tab Transmission Status: Pending to [facility] [place] [facility] Pantoprazole Sodium [Protonix] 40 mg PO DAILY #90 tab Transmission Status: Pending to [facility] [facility] Primary Care Physician: Charity Clarke DO [STAFF PHYSICIAN] - Please follow up with your Primary Care Physician in: 1 week. Test Results: Test results from this visit will be discussed in further detail at your follow-up appointment, if applicable. Please Follow Up With: Viktor Morris MD When: 2-3 weeks.
[2018-09-25] MEDS: Ferrous Gluconate 324 MG Tablet PO ×2 (08:47→17:37)
[2018-09-25] MEDS: Multivitamins,Therapeutic Tablet 1 TABLET PO (08:47)
[2018-09-25] MEDS: Aspirin E.C. 81 MG Tablet PO (08:47)
[2018-09-25] MEDS: Amox/Clavulanate 500 MG Tablet PO ×2 (08:48→17:37)
[2018-09-25 09:06] LABS: Bedside Glucose 152 mg/dL (70-110)
[2018-09-25] MEDS: Furosemide 40 MG Tablet PO (10:02)
[2018-09-25] MEDS: Clopidogrel Bisulfate 75 MG Tablet PO (10:03)
[2018-09-25] MEDS: Metoprolol Tartrate 25 MG Tablet PO ×2 (10:03→21:46)
[2018-09-25] MEDS: Pantoprazole Sodium 40 MG Tablet PO (10:03)
--- NOTE | 2018-09-25 11:40 | DS.PCM_ITS ---
Discharge Date and Diagnosis - Problem List Patient Problems: Active and Suspected Problems (Last Updated 09/21/18 @ 18:42 by Desiree Hong) NSTEMI (non-ST elevated myocardial infarction) (Acute) Sepsis due to pneumonia (Acute) Anemia (Acute) Date of Admission: 09/19/18 Date of Discharge: 09/25/18 - Primary Discharge Diagnosis Active and Suspected Problems (Last Updated 09/21/18 @ 18:42 by Desiree Hong) #1 acute non-ST elevation AL, status post PTCA/CARMELO to mid RCA. #2 bilateral lower lobe healthcare associated pneumonia/sepsis. #3 acute on chronic anemia. #4 mild gastritis. #5 mild systolic acute CHF, attributed to volume overload. - Secondary Discharge Diagnosis Chronic Problems (Last Updated 09/21/18 @ 18:42 by Desiree Hong) Atherosclerotic heart disease of [place] coronary artery without angina pectoris (Chronic) Stented coronary artery (Chronic 09/21/18) Successful PTCA/CARMELO of Mid RCA with a 3.0 x 38 Promus Synergy, followed immediately upstream with a 3.0 x 20 Promus Synergy Hypertension (Chronic) DM2 (diabetes mellitus, type 2) (Chronic) Hospital Course and Treatment Imaging Results: Clinical Impression(s) from Imaging Studies Chest X-Ray 09/19/18 05:42 IMPRESSION: 1. Bibasilar opacities, nonspecific but concerning for pneumonia. 2. Small bilateral pleural effusions. at 0644 Reported and signed by: Maricel Francis MD Electronically Signed: Maricel Francis MD at 6:44 EDT Tel , Service support , Chest X-Ray 09/20/18 12:15 IMPRESSION: CHF with bilateral pleural effusions, follow-up recommended to assure resolution Electronically Signed: David Good MD at 12:34 EDT , Service support , Consultations 09/19/18 11:04 Consult: Onc/Wound/locket maker Routine Comment: Reason for Consult:: wound to coccyx, heel. Colostomy Dr. Morris, cardiology. Dr. Umaña, general surgery. Operations: None Procedures: 2-D Echocardiogram, Blood transfusion, Cardiac catheterization, EGD, EKG Summary of Care Provided: Patient seen and examined on today's discharge and appeared to be stable to be discharged home. It was mentioned to me that patient's son does not want his mother to go to shelter facility and he is capable of taking care of her at home. On the day of discharge, she denied any specific symptoms. The night before, nursing staff mentioned that patient complained of being short of breath although she was on room air and her pulse ox was 96%. Her vital signs are stable on the day of discharge and she has been off oxygen This is an 82 presented to the emergency room because of chest pain, found to have acute non-ST elevation AL, healthcare associated pneumonia with sepsis as well as acute on chronic anemia requiring blood transfusion. #1 acute non-ST elevation AL: Status post PTCA/CARMELO to mid RCA. Treated with aspirin, Plavix, statins, metoprolol. Afterwards, her vital signs stabilized, heart rate remained stable as well as blood pressure and she was able to come off oxygen. 2D echocardiogram revealed ejection fraction of 45%, critical aortic stenosis. She had an episode of worsening shortness of breath, required oxygen and it was attributed to mild acute systolic CHF due to volume overload as patient received IV fluids for pneumonia and sepsis. Later, respiratory status stabilized and pulse ox remained stable on room air. Patient is a bedridden because of paraplegia, lives at home with her son who reportedly does not want his mother to go to shelter facility and he is capable of taking care of her at home. Reportedly, he denied even home health services. Discharged home in a stable medical condition, discharged on aspirin, Plavix, statins and metoprolol, no VIKAS inhibitors given upon discharge because of worsening kidney function. #2 Healthcare associated pneumonia/sepsis: Treated with IV vancomycin and Zosyn and later, vancomycin discontinued. She has been afebrile, no leukocytosis, pulse ox is maintained on 2 L. Pneumococcal and Legionella antigen were negative. Blood cultures showed no growth in 48 hours. Sputum cultures revealed yeast, no bacteria. Patient discharged home on Augmentin twice daily renally adjusted dose to complete total of 10 days of treatment. #3 acute on chronic anemia: Lowest hemoglobin was 6.3 g/dL. She received a total of 2 units of packed RBCs. Discharge hemoglobin was 8.9 g/dL. She underwent upper EGD that showed no evidence of upper GI active bleeding or ulcers, revealed mild gastritis. Patient was started on Protonix. #4 type 2 diabetes mellitus: During this hospital stay, she remained only on sliding scale and her blood sugar was very stable, in the range of 160s to 170s. Upon discharge, dose of 70/30 Humulin insulin decreased down to 15 units nightly, continue with on sliding scale. Patient discharged home in a stable medical condition, discharged on Augmentin 500 mg p.o. twice daily for 5 days to complete total of 10 days of treatment for pneumonia, started on aspirin, Plavix, statins and metoprolol for non-STEMI status post PTCA/CARMELO to mid RCA, started on Protonix for gastritis, started on iron supplement for anemia, maintained on her previous home medications without any changes, recommended from the PCP in 1 week, follow-up with cardiology in 2 to 3 weeks. This note was generated with [employer] dictation software. It may contain incorrect words, spelling, and punctuation that were not noted in checking the note before signing. Patient Problems: Active and Suspected Problems (Last Updated 09/21/18 @ 18:42 by Desiree Hong) NSTEMI (non-ST elevated myocardial infarction) (Acute) Sepsis due to pneumonia (Acute) Anemia (Acute) - Physical Exam General: Alert, Oriented x3, Cooperative, No apparent distress HEENT: Atraumatic, PERRLA, EOMI, Normocephalic Oral: Moist Mucosa, No Gingival or Mucosal Lesions/ Ulcerations Neck: Supple, No JVD, Negative Carotid Bruits, Trachea Midline, Thyroid Normal Size and Texture Lungs: Clear to auscultation, No rhonchi, No wheeze, No rales, Diminished, - - Decreased breath sounds at the bases. Cardiovascular: Regular rate, Regular Rhythm, Normal S1, Normal S2, PMI Normal, Murmur Abdomen: Bowel Sounds Present, Soft, Non Tender, Non-Distended, No Hepato-splenomegaly, - - Colostomy bag in place. Extremities: No clubbing, No cyanosis, No edema Skin: No rashes, No breakdown Lymphatic: No Cervical, Supraclavicular, or Inguinal Adenopathy Neurological: Cranial nerves II-XII grossly intact, - - Paraplegia Psych/Mental Status: Normal Affect, Flat Affect, Alert and oriented to time, place, person, mood and affect Vital Signs Temp Pulse Resp BP Pulse Ox 98.4 F 93 18 129/72 H 95 09/25/18 08:35 09/25/18 10:03 09/25/18 08:35 09/25/18 08:35 09/25/18 08:35 Oxygen Flow Rate (L/min) 1 Oxygen Delivery Method Nasal Cannula Weight: 152 lb 12.485 oz Body Mass Index (BMI) 24.5 Intake and Output for Last 24 Hours 09/23/18 09/24/18 09/25/18 23:59 23:59 23:59 Intake Total 1635.7 / 1635.7 1407 / 1407 Output Total 1050 / 1050 4625 / 4625 600 / 600 Balance 585.7 / 585.7 -3218 / -3218 -600 / -600 Microbiology Past 72 Hours 09/19/18 07:41 Blood Culture - Final Blood Culture (Wb) - Right Wrist No growth in 5 days. 09/21/18 16:40 Gram Stain - Final Sputum, Expectorated/Coughed Respiratory Culture - Final Yeast Laboratory Tests Past 24 Hrs 09/24/18 12:15 Hgb 8.9 L Hct 27.4 L POC Glucose 09/25/18 09/25/18 09/24/18 08:54 06:40 22:10 POC Glucose 152 H 163 H 161 H 09/24/18 17:04 POC Glucose 177 H Discharge Activity: Return to Normal Activity Weight Bearing Status: No weight bearing Call your doctor if you observe: Fever of 101 or Higher, Shortness of breath, Dizziness, Fainting spells, Chest pain, Increased palpitations (irregular heartbeat), Uncontrolled pain Home Medications: Medications to take at Discharge Insulin Lispro [Humalog] unit SQ TIDCM 01/13/14 Multivitamin 1 tab PO DAILY 09/19/18 Aspirin [Aspirin EC] 81 mg PO DAILY 09/20/18 Atorvastatin Calcium 40 mg PO DAILY 09/20/18 Colace 1 tab PO QHS 09/20/18 Donepezil HCl 5 mg PO QHS 09/20/18 Potassium Chloride [K-Dur] 20 meq PO DAILY 09/20/18 Amox/Clavulanate Tablet [Augmentin Tablet] 500 mg PO BIDCM #10 tab 09/25/18 Atorvastatin Calcium [Lipitor] 20 mg PO QHS #90 tab 09/25/18 Clopidogrel Bisulfate [Plavix] 75 mg PO DAILY #90 tab 09/25/18 Ferrous Gluconate 324 mg PO BIDCM #90 tab 09/25/18 Furosemide [Lasix] 20 mg PO DAILY #30 tab 09/25/18 Humulin 70-30 Vial 15 units SQ QHS #0 09/25/18 Metoprolol Tartrate [Lopressor (beta vernon)] 25 mg PO BID #90 tab 09/25/18 Pantoprazole Sodium [Protonix] 40 mg PO DAILY #90 tab 09/25/18 Following Prescrptions Were Given to Patient: Amox/Clavulanate Tablet [Augmentin Tablet] 500 mg PO BIDCM #10 tab Transmission Status: Received by [facility] Ferrous Gluconate 324 mg PO BIDCM #90 tab Transmission Status: Received by [facility] Furosemide [Lasix] 20 mg PO DAILY #30 tab Transmission Status: Received by [facility] Atorvastatin Calcium [Lipitor] 20 mg PO QHS #90 tab Transmission Status: Received by [facility] Metoprolol Tartrate [Lopressor (beta vernon)] 25 mg PO BID #90 tab Transmission Status: Received by [facility] Clopidogrel Bisulfate [Plavix] 75 mg PO DAILY #90 tab Transmission Status: Received by [facility] Pantoprazole Sodium [Protonix] 40 mg PO DAILY #90 tab Transmission Status: Received by [facility] Primary Care Physician: Charity Clarke DO [STAFF PHYSICIAN] - Please follow up with your Primary Care Physician in: 1 week. Please Follow Up With: Viktor Morris MD When: 2-3 weeks. Disposition: Home Minutes spent on discharge:: 40 Patient Condition:: Stable Medical Necessity - Tobacco Use Smoking Status: Former smoker Tobacco Use: Non-smoker Meaningful Use Info Meaningful Use Diagnoses (Choose all that apply): AMI - AMI Aspirin given w/in 24hrs of arrival?: Yes ASA at discharge?: Yes Statins at discharge?: Yes Vikas/ARB at discharge?: No Reason Vikas/ARB not ordered:: Worsening renal disease Beta [place] at discharge?: Yes Done w/ Acute AL measure.: Yes Documented LVEF (%): 45 Code Visit Inpatient E&M: 77878 Disch Hosp
--- NOTE | 2018-09-25 12:00 | NURSING ---
spoke with Son and informed that the patient is to be discharged. son states that he is wanting to appeal the discharge. spoke with case management and they stated the son would have to call medicare and they have 24 hours to review. Son called back and stated that he is not able to get patient at this time, but his girlfriend gets off work at 8 pm and could come get her then. Notified dr may of this.
--- NOTE | 2018-09-25 12:03 | PCM.PN.CARD ---
Subjectve: Denies any chest pain. Objective: Vital Signs Temp Pulse Resp BP Pulse Ox 98.4 F 93 18 129/72 H 95 09/25/18 08:35 09/25/18 10:03 09/25/18 08:35 09/25/18 08:35 09/25/18 08:35 Oxygen Flow Rate (L/min) 1 Oxygen Delivery Method Nasal Cannula Weight: 152 lb 12.485 oz Body Mass Index (BMI) 24.5 Intake and Output for Last 24 Hours 09/23/18 09/24/18 09/25/18 23:59 23:59 23:59 Intake Total 1635.7 / 1635.7 1407 / 1407 Output Total 1050 / 1050 4625 / 4625 600 / 600 Balance 585.7 / 585.7 -3218 / -3218 -600 / -600 General: Awake, Oriented x 3 Oral: Moist Mucosa Neck: Supple Lungs: Clear to auscultation Cardiovascular: Regular Rhythm Extremities: No edema Psych/Mental Status: Appropriate 09/24/18 12:15: Hgb 8.9 L, Hct 27.4 L Rhythm: EKG: ECHO: Stress Test: Cardiac Cath: PCI: CT Surgery: Holter monitor: EPS: PPM: CXR: Chest CT Scan: Medical Necessity - Tobacco Use Smoking Status: Former smoker Tobacco Use: Non-smoker Assessment/Plan 1. Non-STEMI: Doing well from this standpoint. Status post PCI. Continue current medications. Okay for discharge from a cardiac standpoint.
[2018-09-25 12:05] LABS: Bedside Glucose 179 mg/dL (70-110)
--- NOTE | 2018-09-25 12:43 | CASEMGMT ---
Case Management Progress Note: 1212- This program writer received phone call from SOFIE Barth informing that patient is Medically stable for DC home today, however patient son states that he does not agree and plan to Appeal. CM informed Nurse that if deciding to Appeal needs to call Number on [facility] elvis Ybarra by Midnight and states Appealing DC and notify nurse that they have Appealed. 1221- Return call from SOFIE Barth states that she s/w son and states he will be here at 2000 today to pick patient up. 1229- Call from Dr Pena and this Correctional Officer discussed all of above. Kike Lopez RNCM
--- NOTE | 2018-09-25 16:36 | NURSING ---
Attempted multiple times to change dressing to sacral wound. Pt refused. Education provided and pt still refused.
[2018-09-25 16:50] LABS: Bedside Glucose 160 mg/dL (70-110)
[2018-09-25] MEDS: Atorvastatin Calcium 20 MG Tablet PO (21:45)
[2018-09-25 22:20] LABS: Bedside Glucose 146 mg/dL (70-110)
--- NOTE | 2018-09-27 12:58 | CASEMGMT ---
SOFIE ARREOLA [place] PHONE CALL DC DATE: 09/25/18 DC Disposition: Home with [facility] Diagnosis on Discharge: NSTEMI LACE/STRATA: 11/02 Attempted call to patient, no answer and message machine did not have name identifier. Call to [facility]. She has spoken to son re: nursing with start of care tomorrow. Son wanted Home Health to call back tomorrow. Tiffanie will f/u with son tomorrow. -Noted pt was in ER yesterday, dc'd home. Minerva MERLOSN RN ACM
== END 2018-09-25 22:20 | disposition home or self-care (01) | DRG 853 ==
LOC: ED 07:10 → PCU 08:21 → ICU 09-21 12:46 → PCU 09-22 16:11
PROVIDERS: Family Medicine; Hospitalist; Internal Medicine Cardiovascular Disease; Surgery; Admitting Provider Family Medicine; Emergency Provider Emergency Medicine; Family Provider Internal Medicine; PCP Internal Medicine; Visit Provider Hospitalist
PROC: 0DJ08ZZ Inspection of Upper Intestinal Tract, Via Natural or Artificial Opening Endoscopic (ICD-10-PCS; CPT 43235; principal; 2018-09-23 11:55)
DX: A41.9 Sepsis, unspecified organism (principal); L89.154 Pressure ulcer of sacral region, stage 4; I21.4 Non-ST elevation (NSTEMI) myocardial infarction; J18.9 Pneumonia, unspecified organism; I50.21 Acute systolic (congestive) heart failure; G82.20 Paraplegia, unspecified; I13.0 Hypertensive heart and chronic kidney disease with heart failure and stage 1 through stage 4 chronic kidney disease, or unspecified chronic kidney disease; I25.110 Atherosclerotic heart disease of native coronary artery with unstable angina pectoris; D64.9 Anemia, unspecified; N18.3 Chronic kidney disease, stage 3 (moderate); E11.22 Type 2 diabetes mellitus with diabetic chronic kidney disease; R19.5 Other fecal abnormalities; Z87.891 Personal history of nicotine dependence; Y95 Nosocomial condition; Z93.3 Colostomy status; Z79.4 Long term (current) use of insulin; I35.0 Nonrheumatic aortic (valve) stenosis; K29.70 Gastritis, unspecified, without bleeding; Z74.01 Bed confinement status; T14.90XS Injury, unspecified, sequela; X58.XXXS Exposure to other specified factors, sequela
CPT/HCPCS: 36415; 71045; 71046; 80048; 80061; 82274; 82607; 82728; 82746; 82962; 83036; 83540; 83550; 83605; 83735; 84484; 85014; 85018; 85025; 85347; 85610; 85730; 86850; 86900; 86920; 87040; 87070; 87205; 87449; 92928; 93005; 93306; 93454; 94640; 94668; 97162; 97166; 97530; 97802; 99152; 99153; 99285; J7030; J7040; P9016; Q9957; Q9967; A4216; C1725; C1769; C1874; C1887; C1894; C9600; J1940; J2405

== ENCOUNTER 2018-09-26 12:18 | Emergency (ER) | payer MEDICARE, OTHER, SELFPAY ==
[2018-09-23 10:46] VITALS: BMI 24.5
[2018-09-26] VITALS (8 sets, daily range): BP systolic 112–134; BP diastolic 57–85; PULSE 89–99; RESP 14–21; TEMP 36.7; O2SAT 94–100; BMI 24.8
--- NOTE | 2018-09-26 12:54 | RAD_ITS ---
STUDY: X-RAY CHEST REASON FOR EXAM: Female, 83 years old. Shortness of breath TECHNIQUE: Single AP portable view of the chest. COMPARISON: September 20, 2018 FINDINGS: There are bilateral hazy groundglass opacities now with predominance in the right upper lobe. There is no demonstrated pleural abnormality. There is moderate cardiac enlargement. Normal mediastinum and sadie. Normal visualized pulmonary arteries. Normal visualized aortic arch and descending thoracic aorta. There is a thoracic spine fusion and midline spacer. Normal visualized ribs, clavicles, and shoulders. There is no demonstrated abnormality of the visualized soft tissue structures of the upper abdomen. RAD/Chest 1 View (Portable) IMPRESSION: Bilateral pulmonary opacities suspicious for layering effusions atelectasis cannot exclude focal consolidation developing in the right upper lobe. Electronically Signed: Cindy Burton MD at 14:00 EDT Tel , Service support ,
--- NOTE | 2018-09-26 12:59 | ED.DCSUM_ITS ---
History of Present Illness Informant: Patient, Digital Press Operator Onset: Today Context: Gradual Onset Timing: Continuous Quality: weak Location: entire body Current Severity: Mild Maximum Severity: Severe Worsened by: nothing Relieved by: nothing Associated Symptoms: Shortness of breath Narrative: 83-year-old female presents to the emergency department for fatigue not feeling well and social issues at home. She was discharged from this facility yesterday after having a cardiac stent placed. She lives with her son who she does not feel like is treating her appropriately there is been no abuse or harm but she states that he is not letting the home nurse in the home and he is not calling ambulance when she requests him to. Prior similar symptoms: Yes Recent Illness/Hospitalization: Yes <Lalo Canela - Last Filed: 09/26/18 16:06> <Landry Rodriguez - Last Filed: 09/26/18 17:08> Chief Complaint: Shortness of Breath Past Medical History Prior records reviewed: Yes Past Medical History: - - Hypertension, hyperlipidemia, coronary artery disease Lives: With Family <Lalo Canela - Last Filed: 09/26/18 16:06> Surgical History: - - Colostomy at about 2 years (2017) ago due to sacral wound per son Smoking Status: Former smoker - Family History Maternal Family History: Reports: - - Patient is demented and cannot give clear past maternal medical history. Paternal Family History: Reports: - - Patient is demented and cannot give clear past maternal medical history. Sibling Family History: Reports: No pertinent history <Landry Rodriguez - Last Filed: 09/26/18 17:08> - Allergies and Home Meds Allergies/Adverse Reactions: Allergies No Known Allergies Allergy (Verified 01/12/14 18:03) Primary Care Physician: Nico Chapman [[facility]] - Review of Systems All systems negative except as indicated General: Reports: Malaise. Denies: Chills, Fever Cardiovascular: Denies: Chest pain Respiratory: Denies: Dyspnea <Lalo Canela - Last Filed: 09/26/18 16:06> Physical Exam Vital Signs/Narrative: Vital Signs Temp Pulse Resp BP Pulse Ox 09/26/18 12:21 98.1 F 89 17 134/85 H 99 09/26/18 12:19 98.1 F 93 18 134/85 H 95 Inital Vital Signs reviewed: Yes General: Well nourished, Well developed, No Acute Distress Head: Normocephalic, Atraumatic Eyes: Perrl, EOMI ENT: Moist mucous membranes Neck: Supple, Nontender Cardiovascular: Regular rate, Regular rhythm Respiratory: No distress, CTA bilaterally, Chest nontender Abdomen: Soft, Nontender, Nondistended, Normal bowel sounds, No masses : - - Silverio catheter in place Back: Nontender Extremities: Nontender, No edema Skin: Normal color, No rash Neurological: Alert, Oriented x3 <Lalo Canela - Last Filed: 09/26/18 16:06> Vital Signs/Narrative: Vital Signs Temp Pulse Resp BP Pulse Ox 09/26/18 12:21 98.1 F 89 17 134/85 H 99 09/26/18 12:19 98.1 F 93 18 134/85 H 95 <Landry Rodriguez - Last Filed: 09/26/18 17:08> Diagnostic/Tx/Re-eval Chest X-Ray - ED: 2 View, Read by ED Physician, Read by Radiologist, No Acute Disease - Rhythm Strip Rhythm Strip: Sinus Rhythm Ectopy: None - Medical Decision Making Patient's work-up was unremarkable. Vital signs are stable. Patient discharged yesterday from the hospital do not feel readmission is indicated. Discussed this with her son who is agreed with the plan. She is not able to have social work see her today. Again there is no suspicion of abuse. Son will come and pick her up and take her home. Patient agreeable with plan. <Lalo Canela - Last Filed: 09/26/18 16:06> - Medical Decision Making I am evaluating this patient with our physician marketing assistant retail division EP. Elderly female recently admitted to the hospital for cardiac work-up that had a cardiac stent and catheterization. She was also diagnosed with pleural effusions. Was just discharged from the hospital yesterday. States she is not doing well at home. Also there are social issues between her and her son currently ongoing. He does live with her. Exam elderly female no acute distress. No hypoxia on oxygen. HEENT exam unremarkable. Neck nontender no JVD. Lungs clear to auscultation bilaterally. Heart regular rate and rhythm rate about 90. Abdomen soft and nontender. She is moving both upper extremities. In the left lower extremity. 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 Calves are nontender without edema or cords. Neurologically she is awake and alert. Answering questions and following commands currently vital signs are stable and afebrile. Her pulse ox on oxygen which she is not on at home is in the high 90s. I was going to consult social work case manager but they are not available today. Screening labs will be obtained along with a repeat chest x-ray. And will make a determination of the patient needs readmitted more for social service reasons. <Landry Rodriguez - Last Filed: 09/26/18 17:08> ED Disposition <Lalo Canela - Last Filed: 09/26/18 16:06> <Landry Rodriguez - Last Filed: 09/26/18 17:08> - Plan for ED Patient: Disposition: Home or Assisted Living Diagnosis: Encounter for medical screening examination Instructions: MEDICAL SCREENING EXAM, NonUrgent Referrals: Nico Chapman [[facility]] -
[2018-09-26 13:43] LABS: Absolute Lymphocyte Count 1.58 X10^3/uL (0.83-4.51); Absolute Neutrophil Count 5.4 X10^3/uL (2.0-7.7); Basophil# 0.06 X10^3/uL; Basophil% 0.7 % (0-1); Eosinophil# 0.47 X10^3/uL; Eosinophils% 5.8 % (0-5); Hematocrit 28.1 % (37-47); Lymphocyte # 1.58 X10^3/ul (4.0); Lymphocyte % 19.3 % (19-41); Mean Corpuscular Volume 84.4 fL (81-99); Mean Platelet Vol. 8.6 fl (6.2-12.0); Monocyte# 0.68 X10^3/uL; Monocyte% 8.3 % (0-10); NRBC Flagged by Analyzer 0 % (0-5); Neutrophil # 5.36 X10^3/uL (2.7-7.7); Neutrophil % 65.7 % (47-70); Platelet Count 288 K/mm3 (150-450); RBC Distribution Width CV 16.5 % (11.6-14.6); RBC Distribution Width SD 50.6 fl (35.1-43.9); Red Blood Count 3.33 M/mm3 (4.2-5.4); White Blood Count 8.2 K/mm3 (4.4-11.0)
[2018-09-26 13:58] LABS: Anion Gap 5 (5-15); BUN 25 mg/dL (7-18); BUN/Creat Ratio 17.4 RATIO (10-20); Calcium,Total 9.6 mg/dL (8.5-10.1); Chloride 110 mmol/L (98-107); Creatinine, Serum 1.44 mg/dL (0.55-1.02); EST Glomerular Filtration Rate 37 mL/min (>60); Est Glom Filt Rate - Afr Amer 45 mL/min (>60); Estimated Creatinine Clearance 33.13 ml/min; Glucose 118 mg/dL (74-106); Potassium 4.3 mmol/L (3.5-5.1); Sodium Level 139 mmol/L (136-145)
--- NOTE | 2018-09-26 16:10 | ED.RN ---
CALLED SON. HE IS UNABLE TO PICK HER UP UNTIL [phone]. PT WAS MOVED UP IN BED AND REPOSITIONED. MEAL TRAY ORDERED. PT UPDATED. Ollie FELDMAN RN [phone]
[2018-09-26] MEDS: Ondansetron 4 MG/2 ML Vial IV (18:14)
[2018-09-26] MEDS: Morphine 4 MG/ML Syringe IV (18:15)
--- NOTE | 2018-09-26 18:48 | ED.RN ---
attempt made to contact sister on patient behalf. number that was given for sister was a number for a dr's office. no contact information in system for sister. tonio avina rn [phone]
--- NOTE | 2018-09-26 19:09 | ED.RN ---
checked with patient's son, Ramesh, and confirmed he is coming to picking supervisor his mother after 1999, when he has a ride, patient made aware
--- NOTE | 2018-09-26 19:12 | ED.RN ---
PT TURNED TO LEFT SIDE. PILLOW PLACED BENEATH BOTTOM. PT TOLERATED WELL. PT DENIES ANY NEEDS AT THIS TIME.
--- NOTE | 2018-09-26 21:42 | ED.RN ---
upon moving patient up to transition in to wheelchair dressing was noted on tailbone. dressing was falling off. dressing was changed and adult brief was placed. pt had large existing ulcer. ed dr was notified and evaluated wound prior to dressing being placed. she also had a partially filled colostomy bag that began to leak after repositioning patient. son request bag be changed and removed old bag. ostomy supplies request from medical office supervisor. ostomy was changed by medical office supervisor. pt son apologized for being late to pick her up. some time families need a break too. he was informed of case management consult placed early in her stay. respite care recommended. pt was wheeled from ed by her son. no further questions or request made by family. tonio avina rn [phone]
== END 2018-09-26 21:51 | disposition home or self-care (01) ==
PROVIDERS: Emergency Provider Emergency Medicine
DX: Z00.00 Encounter for general adult medical examination without abnormal findings (principal); L89.109 Pressure ulcer of unspecified part of back, unspecified stage; R53.83 Other fatigue; R06.02 Shortness of breath; I10 Essential (primary) hypertension; E78.5 Hyperlipidemia, unspecified; I25.10 Atherosclerotic heart disease of native coronary artery without angina pectoris; Z95.5 Presence of coronary angioplasty implant and graft; Z79.82 Long term (current) use of aspirin; Z79.02 Long term (current) use of antithrombotics/antiplatelets; Z79.4 Long term (current) use of insulin; Z79.899 Other long term (current) drug therapy; Z87.891 Personal history of nicotine dependence
CPT/HCPCS: 71045; 80048; 85025; 94760; 96374; 96375; 99285; J2405